=== PATIENT | male | born 1950 | race Caucasian/White ===

== ENCOUNTER 2016-11-06 19:02 | Inpatient (IN) | payer MEDICARE ==
[2016-11-06] MEDS ORDERED: ONDANSETRON HCL INJ/PF 4 MG/2 ML SDV ONE (19:06)
[2016-11-06] MEDS ORDERED: ONDANSETRON HCL INJ/PF 4 MG/2 ML SDV IV ONE (19:07)
[2016-11-06] MEDS ORDERED: NORMAL SALINE 1000 ML 1,000 ML IV ONE (19:33)
[2016-11-06] MEDS ORDERED: DIPHENHYDRAMINE HCL 50 MG/ML VIAL IV ONE (19:34)
--- NOTE | 2016-11-06 19:40 | ER Document Report ---
ED General - General Stated Complaint: POSSIBLE SYNCOPE/HEADACHE Notes: Patient is a 66-year-old male with past medical history of hypertension, hyperlipidemia, and a spinal fusion surgery performed one week ago who presents with acute onset of vertigo with an associated fall just prior to arrival. Patient states he was lying in bed when he developed acute onset of severe vertigo and feeling like he was falling towards his right. He got out of bed to try to walk to the door but actually fell onto the ground trying ambulate a short distance. Since that time he has had multiple episodes of vomiting and arrives very ill in appearance, diaphoretic and pale. Family denies any history of similar symptoms in the past. The patient denies any focal weakness , numbness, headache or altered mental status. Nothing improves or worsens his symptoms. He denies history of similar symptoms in the past. he has not contacted his PCP regarding today's symptoms. TRAVEL OUTSIDE OF THE [place] IN LAST 30 DAYS: No - Related Data Allergies/Adverse Reactions: levofloxacin [From Levaquin] Allergy (Verified 11/06/16 21:01) ibuprofen Adverse Reaction (Intermediate, Verified 11/06/16 21:01) meperidine HCl [From Demerol] Adverse Reaction (Intermediate, Verified 11/06/16 21:01) Hyperactivity Home Medications: Current Home Medications Carbidopa/Levodopa [Carbidopa-Levo ER 50-200 Tab] 200 mg PO TID 11/07/16 [ History] Diphenhydramine HCl 25 mg PO 11/07/16 [History] Fenofibrate Nanocrystallized [Fenofibrate] 145 mg PO DAILY 11/07/16 [History] Gluc 2Kcl/Chondr/Jass Hy/Hy AC [Glucosamine & Chondroitin Cap] 11/07/16 [ History] Past Medical History - General Information source: Patient, Relative - Social History Smoking Status: Never Smoker Frequency of alcohol use: None Drug Abuse: None Lives with: Spouse/Significant other Family History: Reviewed & Not Pertinent, Other - DVT - Past Medical History Cardiac Medical History: Reports: Hx Coronary Artery Disease, Hx Heart Attack, Hx Hypercholesterolemia, Hx Hypertension Pulmonary Medical History: Denies: Hx Asthma Neurological Medical History: Reports: 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. Denies: Hx Cerebrovascular Accident Renal/ Medical History: Reports: Hx Kidney Stones GI Medical History: Denies: Hx Hepatitis, Hx Hiatal Hernia, Hx Ulcer Infectious Medical History: Denies: Hx Hepatitis Past Surgical History: Reports: Hx Cardiac Catheterization, Hx Coronary Stent, Hx Orthopedic Surgery. Denies: Hx Open Heart Surgery, Hx Pacemaker - Immunizations Hx Diphtheria, Pertussis, Tetanus Vaccination: No Review of Systems - Review of Systems Notes: Constitutional: Negative for fever. HENT: Negative for sore throat. Eyes: Negative for visual changes. Cardiovascular: Negative for chest pain. Respiratory: Negative for shortness of breath. Gastrointestinal: Negative for abdominal pain, positive vomiting Genitourinary: Negative for dysuria. Musculoskeletal: Negative for back pain. Skin: Negative for rash. Neurological: Negative for headaches, weakness or numbness. Positive for vertigo and truncal ataxia 10 point ROS negative except as marked above and in HPI. Physical Exam - Vital signs Vitals: Temp Pulse Resp BP Pulse Ox 97.6 F 58 L 13 187/111 H 96 11/06/16 19:15 11/06/16 19:15 11/06/16 19:15 11/06/16 19:15 11/06/16 19:15 Interpretation: Hypertensive Notes: PHYSICAL EXAMINATION: GENERAL: Ill in appearance, pale, diaphoretic. HEAD: Atraumatic, normocephalic. EYES: Pupils equal round and reactive to light, extraocular movements intact, sclera anicteric, conjunctiva are normal. ENT: nares patent, oropharynx clear without exudates. Moderately dry mucous membranes. NECK: Normal range of motion, supple without lymphadenopathy LUNGS: Breath sounds clear to auscultation bilaterally and equal. No wheezes rales or rhonchi. HEART: Regular rate and rhythm without murmurs ABDOMEN: Soft, nontender, normoactive bowel sounds. No guarding, no rebound. No masses appreciated. EXTREMITIES: Normal range of motion, no pitting or edema. No cyanosis. NEUROLOGICAL: Face symmetric. Tongue protrudes midline. Extraocular motions intact. Pupils are 2 mm and equally reactive. Normal speech. 5 out of 5 strength in both the distal and proximal upper and lower extremities bilaterally. Sensation is grossly intact throughout. Finger to nose testing normal. Heel to mercedes normal. Patient continuously slumps towards the right while sitting in the bed. Attempts at ambulation demonstrate truncal ataxia point towards the right. Pronator drift normal. PSYCH: Normal mood, normal affect. SKIN: Pallor, no rashes or lesions noted. Course - Re-evaluation Re-evalutation: 11/06/16 19:35 Patient presents with acute onset vertigo, nausea and vomiting. Patient arrived diaphoretic, pale and ill in appearance. Vitals show bradycardia with associated hypertension. Patient initially actively vomiting but this did discontinue with administration of IV Zofran. Initial neurologic assessment shows normal cerebellar testing, normal extraocular motions, patient continues to fall toward the right with truncal ataxia concerning for possible cerebellar infarction. Alternative differential includes cardiac etiology although patient denies any chest pain, shortness of breath, and initial EKG is without evidence of ST elevations or depressions. Initial chest x-ray unremarkable without wide mediastinum, pneumothorax or infiltrate. Pulmonary embolus seems unlikely given the absence of dyspnea, shortness of breath, or suggestive clinical history. Less concerning pathologies considerations include acute disability neuritis although given patient's appearance and risk factors is to be a diagnosis of exclusion. Laboratories have been obtained. A stat head CT was obtained at time of patient's arrival which is negative for any evidence of subarachnoid hemorrhage or intraparenchymal bleed. Given that CT was obtained within 6 hours of symptom onset and patient does not have any significant headache, I do not believe a lumbar puncture to further exclude subarachnoid hemorrhage is indicated at this time. I do not suspect an acute meningitis or encephalitis based on clinical history and exam. Proceed with an MRI of the head, labs, fluid resuscitation and frequent reassessments. The patient is critically ill at this time. 11/06/16 22:15 I have been notified that patient cannot receive an MRI due to the recent nature of his spinal fusion. On reassessment, patient is much improved at this time, vitals mouth normal limits. He denies that he is point towards the right anymore. His repeat neurologic exam remains within normal limits. Will recheck a second troponin 3 hours from initial. Patient is overall much improved in appearance at this time color is now normal and is no longer vomiting. 11/07/16 01:22 Attempted to walk the patient and he continues to have severe truncal ataxia, pulling towards the right at the level of his torso. His neuro exam otherwise remains unremarkable. He continues to have vertigo. Second troponin remains negative. He continues to be without chest pain or shortness of breath. Primary concern at this point continues to be a cerebellar stroke given his truncal ataxia. He has been admitted to Dr. Martinez at this time. - Vital Signs Vital signs: Temp Pulse Resp BP Pulse Ox 97.6 F 68 20 133/83 H 93 11/06/16 19:15 11/07/16 00:11 11/07/16 01:31 11/07/16 01:31 11/07/16 01:31 - Laboratory Result Diagrams: 11/06/16 19:30 11/06/16 19:30 Laboratory results interpreted by me: 11/06/16 11/06/16 19:30 19:37 WBC 12.7 H RBC 3.98 L Hgb 12.9 L Plt Count 506 H Eosinophils % 6.9 H Absolute Eosinophils 0.9 H POC Glucose 111 H - Diagnostic Test Radiology reviewed: Image reviewed, Reports reviewed Radiology results interpreted by me: 11/06/16 19:39 CT head: No acute intracranial bleed - EKG Interpretation by Me Additional EKG results interpreted by me: 11/07/16 02:14 Sinus bradycardia. Rate 57. Incomplete right bundle. No ST elevations or depressions. QTC 421. Critical Care Note - Critical Care Note Total time excluding time spent on procedures (mins): 35 Comments: Critical care time spent obtaining history from patient or surrogate, discussions with consultants, development of treatment plan with patient or surrogate, evaluation of patient's response to treatment, examination of patient , ordering and performing treatments and interventions, ordering and review of laboratory studies, re-evaluation of patient's condition, ordering and review of radiographic studies and review of old charts Discharge - Discharge Clinical Impression: Truncal ataxia, Vertigo Nausea and vomiting Qualifiers: Vomiting type: unspecified Vomiting Intractability: non-intractable Qualified Code(s): R11.2 - Nausea with vomiting, unspecified Condition: Fair Disposition: ADMITTED INPATIENT Admitting Provider: Josi Martinez Unit Admitted: Telemetry
[2016-11-06 19:48] LABS: PROTHROMBIN TIME 12.4 SEC (11.4-15.4)
[2016-11-06 19:53] LABS: PARTIAL THROMBOPLASTIN TIME 32.5 SEC (23.5-35.8)
[2016-11-06 19:54] LABS: ABSOLUTE BASOPHILS # (AUTO) 0.1 10^3/uL (0.0-0.2); ABSOLUTE EOSINOPHILS # (AUTO) 0.9 10^3/uL (0.0-0.6); ABSOLUTE LYMPHOCYTES (AUTO) 2.7 10^3/uL (0.5-4.7); BASOPHILS % (AUTO) 1.1 % (0-2); EOSINOPHILS % (AUTO) 6.9 % (0-6); HEMATOCRIT 38.2 % (37.9-51.0); HEMOGLOBIN 12.9 g/dL (13.5-17.0); HGB HCT DIFFERENCE 0.5; LYMPHOCYTES % (AUTO) 21.1 % (13-45); MEAN CORPUSCULAR HEMOGLOBIN 32.3 pg (27.0-33.4); MEAN CORPUSCULAR HGB CONC 33.7 g/dL (32.0-36.0); MEAN CORPUSCULAR VOLUME 96 fl (80-97); MONOCYTES % (AUTO) 8.2 % (3-13); RED BLOOD COUNT 3.98 10^6/uL (4.35-5.55); RED CELL DISTRIBUTION WIDTH 13.1 % (11.5-14.0); SEGMENTED NEUTROPHILS % (AUTO) 62.7 % (42-78); WHITE BLOOD COUNT 12.7 10^3/uL (4.0-10.5)
[2016-11-06 20:06] LABS: ALANINE AMINOTRANSFERASE 22 U/L (21-72); ALBUMIN 4.1 g/dL (3.5-5.0); ALKALINE PHOSPHATASE 51 U/L (38-126); ANION GAP 13 (5-19); ASPARTATE AMINO TRANSFERASE 30 U/L (17-59); BILIRUBIN,TOTAL 0.6 mg/dL (0.2-1.3); BLOOD UREA NITROGEN 18 mg/dL (7-20); CALCIUM 9.8 mg/dL (8.4-10.2); CARBON DIOXIDE 26 mmol/L (22-30); CHLORIDE 104 mmol/L (98-107); CREATINE KINASE 143 U/L (55-170); CREATININE RESULT 0.92 mg/dL (0.52-1.25); GLUCOSE 109 mg/dL (75-110); POTASSIUM 4.7 mmol/L (3.6-5.0); SODIUM 142.7 mmol/L (137-145); TOTAL PROTEIN 7.1 g/dL (6.3-8.2)
[2016-11-06 20:19] LABS: TROPONIN I < 0.012 ng/mL
[2016-11-06 20:24] LABS: VENOUS BLOOD BASE EXCESS 2.7 mmol/L; VENOUS BLOOD HCO3 28.7 mmol/L (20-32); VENOUS BLOOD PCO2 48.8 mmHg (35-63); VENOUS BLOOD PH 7.39 (7.30-7.42)
[2016-11-06 21:41] LABS: APPEARANCE,URINE CLEAR; BILIRUBIN,URINE NEGATIVE (NEGATIVE); GLUCOSE, URINE NEGATIVE (NEGATIVE); KETONES,URINE NEGATIVE (NEGATIVE); LEUKOCYTE ESTERASE,URINE NEGATIVE (NEGATIVE); NITRITE,URINE NEGATIVE (NEGATIVE); PROTEIN,URINE NEGATIVE (NEGATIVE); URINE SPECIFIC GRAVITY 1.009; UROBILINOGEN,URINE NEGATIVE mg/dL (<2.0)
--- NOTE | 2016-11-06 23:03 | EKG REPORT ---
SEVERITY:- ABNORMAL ECG - SINUS RHYTHM INCOMPLETE RIGHT BUNDLE BRANCH BLOCK ANTERIOR INFARCT, AGE INDETERMINATE : Confirmed by: Caitlin Joaquin MD 06-Nov-2016 23:02:53
[2016-11-07 03:48] LABS: ADD ON TESTING BLD IN LAB ACKNOWLEDGE
[2016-11-07 04:07] LABS: MAGNESIUM 2.2 mg/dL (1.6-2.3)
[2016-11-07] MEDS ORDERED: ACETAMINOPHEN 325 MG TABLET PO PRN (06:02)
[2016-11-07 07:28] LABS: ABSOLUTE BASOPHILS # (AUTO) 0.1 10^3/uL (0.0-0.2); ABSOLUTE EOSINOPHILS # (AUTO) 0.5 10^3/uL (0.0-0.6); ABSOLUTE MONOCYTES (AUTO) 0.7 10^3/uL (0.1-1.4); ABSOLUTE NEUT (AUTO) 8.9 10^3/uL (1.7-8.2); BASOPHILS % (AUTO) 0.7 % (0-2); EOSINOPHILS % (AUTO) 4.4 % (0-6); HEMATOCRIT 38.8 % (37.9-51.0); HEMOGLOBIN 12.8 g/dL (13.5-17.0); HGB HCT DIFFERENCE -0.4; LYMPHOCYTES % (AUTO) 16.5 % (13-45); MEAN CORPUSCULAR HEMOGLOBIN 31.8 pg (27.0-33.4); MEAN CORPUSCULAR VOLUME 97 fl (80-97); MONOCYTES % (AUTO) 6.1 % (3-13); RED BLOOD COUNT 4.02 10^6/uL (4.35-5.55); RED CELL DISTRIBUTION WIDTH 13.1 % (11.5-14.0); SEGMENTED NEUTROPHILS % (AUTO) 72.3 % (42-78); WHITE BLOOD COUNT 12.3 10^3/uL (4.0-10.5)
[2016-11-07 07:46] LABS: CHOLESTEROL 186.53 mg/dL (0-200); Direct HDL 31 mg/dL (>40); TRIGLYCERIDES 146 mg/dL (<150)
[2016-11-07] MEDS: DEXTROSE 5%-NORMAL SALINE 1,000 ML IV PRN ×2 (07:48→22:00)
[2016-11-07] MEDS: ENOXAPARIN SODIUM INJ 40 MG/0.4 ML DISP.SYRIN SUBCUT SCH (07:49)
[2016-11-07 07:56] LABS: DIRECT LDL 129 mg/dL (<100)
--- NOTE | 2016-11-07 09:52 | PDOC H&P ---
History of Present Illness Admission Date/PCP: 11/07/16 01:33 [facility] Patient complains of: vertigo History of Present Illness: RUBINA RODAS III is a 66 year old male with underlying hyperlipidemia, possible congestive heart failure, myoclonic dystonia, known coronary artery disease, anxiety, and arthritis, who presents to the emergency room for evaluation of above complaint. Patient has been discussed with emergency room physician who evaluated the patient. . Patient states he went to bed early the evening of the because he simply felt "odd." No specific complaint other than that. He was awoken by the acute onset of severe vertigo and feeling like he was falling toward his right. Tried to get out of bed and walk to the door to go to the bathroom, and fell more than once, always falling toward his right. Patient states he felt like he had no strength on his right side, and that something was "pulling me to the right." Mild left temporal throbbing headache, which now has almost completely resolved. Multiple episodes of nausea and vomiting, which have resolved. Mild diplopia, which has resolved. However, no chest or abdominal pain, fever chills , diarrhea or dysuria. Was described as being quite ill in appearance upon arrival in the emergency room. Overall clinical appearance has improved. However, when patient was sat up on his bed in the emergency room, he continually fell toward the right. Similar occurrence when staff attempted to walk the patient. Described as "truncal ataxia" by the emergency room physician. Basic neurologic exam otherwise was unremarkable, including fingertip to nose and heel to mercedes. No motor deficit detected. Other than the diagnosis as noted above, basically no underlying neurologic disease, including prior seizure stroke TIA or mini stroke. He is status post lumbar fusion of L3-L5 approximate 1 week ago at [facility]. Has been home only approximately 2 days. Currently resting quietly, still not feeling quite back to his usual self. Laboratory results are listed in [facility] and are reviewed. X-ray summary results are listed below, with full report(s) reviewed. . EKG reviewed. No prior EKG available for comparison. Social history/personal habits: . Has children. Retired teacher. No tobacco use since the of this month; three-quarter pack of cigarettes a day prior to that. No alcohol or illicit drug use. Allergies/adverse reactions are listed in [facility] and are reviewed. Home medications are reviewed by bottle review and discussion with patient and have been reconciled by nursing staff in [facility]. Home medications initially autopopulated into [facility] may not accurately reflect patient's true medications, dosages, and/or frequencies. Compliant with medications. No recent medication changes. REVIEW OF SYSTEMS: Constitutional: No fever or chills. Eyes: Wears glasses. ENT: No swallowing problems or complaints. No hearing problems or complaints. Pulmonary: No current complaints. Cardiovascular: No current complaints, including chest pain. Gastrointestinal: See history and present illness. Skin: No current complaints, including rashes. Hematologic: No unusual easy bruising or bleeding. Neurologic: See history and present illness. Musculoskeletal: Joint pain from arthritis. Psychiatric: Anxiety Endocrine: No current complaints, including polyuria. Genitourinary: No current complaints, including dysuria. PHYSICAL EXAMINATION: 5 feet 10 inches tall. 88.3 kg. BMI 27.9 kg/m. Temperature 98.9. Pulse 68 and regular. Blood pressure 119/69. Respirations are 16 and unlabored. 96% saturation on room air. Slightly overweight otherwise well-nourished well-developed male appearing a bit younger than his stated age. Pleasant awake alert and cooperative. Slightly fatigued. Slightly anxious, but no anibal agitation. Appears to feel somewhat "under the weather," so to speak. is present at his side; patient approves. Skin is warm and dry. No grossly obvious evidence of rash in areas of skin examined. No subcutaneous nodules palpated. ENT: Hearing grossly normal to normal conversation. Tongue midline on protrusion pink and slightly moist. Eyes: No scleral icterus. Pupils equal and reactive to light at 4 mm. [place] conjunctivae. Neck is supple and nontender to gentle active range of motion and palpation. Midline trachea. No palpable thyroid nodule mass enlargement or tenderness. Lymphatic: No palpable cervical or clavicular nodes. Neck and lymphatic exams limited by patient body habitus. Psychiatric: Reasonable insight into acute and chronic medical issues. Oriented to time location and why here. Lungs: Auscultation reveals clear and equal breath sounds bilaterally. No use of accessory respiratory muscles. Cardiovascular: Heart regular rate and rhythm, without gallop murmur or rub. No carotid or abdominal aortic bruits. No ankle or pedal edema. Faintly palpable dorsalis pedis pulses. Abdomen: soft, slightly, distended nontender with positive bowel sounds. Unable to adequately evaluate abdomen for masses or organomegaly due to distention. Extremities: Feet are warm and dry. No calf tenderness to compression. No grossly obvious visual evidence of calf swelling. Gentle manipulation of lower extremities fails to reveal any obvious evidence of injury or instability to knees hips or ankles. Neurologic: Cranial Nerves II through XII are grossly intact. Light touch intact at face, upper and lower extremities. Motor function of major muscle groups upper and lower extremities 5 over 5 and symmetric. Patellar reflexes absent. Absent Babinski. No evidence of nystagmus. Fingertip to nose intact and symmetric bilaterally. Past Medical History Cardiac Medical History: Reports: Congestive Heart Failure - Possible, Coronary Artery Disease, Myocardial Infarction, Hyperlipidema, Hypertension Denies: DVT, Pulmonary Embolism Pulmonary Medical History: Denies: Asthma, Chronic Obstructive Pulmonary Disease (COPD) EENT Medical History: Reports: Eyes - Wears glasses Denies: Ears, Throat Neurological Medical History: Reports: Seizures - ONLY CHILD Denies: Hemorrhagic CVA, Ischemic CVA Endocrine Medical History: Denies: Diabetes Mellitus Type 1, Diabetes Mellitus Type 2, Hyperthyroidism, Hypothyroidism Renal/ Medical History: Reports: Other - Brief history of acute renal failure in 2016, felt secondary to Levaquin. Resolved. GI Medical History: Denies: Cirrhosis, Hepatitis, Hiatal Hernia, Peptic Ulcer Disease Musculoskeltal Medical History: Reports: Arthritis Skin Medical History: Reports: None Denies: Eczema, Psoriasis Psychiatric Medical History: Reports: General Anxiety Disorder Hematology: Denies: Anemia, Sickle Cell Disease Infectious Medical History: Denies: Hepatitis B, Hepatitis C Past Surgical History Past Surgical History: Reports: Cardiac Catheterization, Coronary Stent, Orthopedic Surgery Denies: Pacemaker Social History Information Source: Patient, Emergency Med Personnel, [facility] Records Lives with: Spouse/Significant other Smoking Status: Former Smoker Number of Years Smokin Last Time Smoked: 10/27/2016 Frequency of Alcohol Use: None Hx Recreational Drug Use: No Hx Prescription Drug Abuse: No - Advance Directive Resuscitation Status: Full Code Surrogate healthcare decision maker:: His Family History Family History: Reviewed & Not Pertinent, CAD, CVA, Other - DVT Parental Family History Reviewed: Yes Children Family History Reviewed: Yes Sibling(s) Family History Reviewed.: Yes Medication/Allergy Home Medications: Carvedilol [Coreg 25 mg Tablet] 1 tab PO BID 05/14/15 Multivitamin [Multivitamins] 1 each PO DAILY 05/14/15 Pravastatin Sodium [Pravachol] 10 mg PO DAILY 05/14/15 Pregabalin [Lyrica] 150 mg PO BID 05/14/15 RX: Diazepam 10 mg PO DAILY 05/14/15 RX: Duloxetine HCl 60 mg PO BID 05/14/15 Ubidecarenone [Coq-10] 400 mg PO DAILY 05/14/15 RX: Fludrocortisone Acetate 0.1 mg PO DAILY 07/20/15 Carbidopa/Levodopa [Carbidopa-Levo ER 50-200 Tab] 200 mg PO TID 11/07/16 Fenofibrate Nanocrystallized [Fenofibrate] 145 mg PO DAILY 11/07/16 Oxycodone HCl/Acetaminophen [Percocet 5-325 mg Tablet] 1 tab PO Q4HP PRN Clopidogrel Bisulfate [Plavix 75 mg Tablet] 75 mg PO DAILY #30 tablet 11/08/16 RX: Aspirin 81 mg PO DAILY #30 11/08/16 Allergies/Adverse Reactions: levofloxacin [From Levaquin] Allergy (Verified 11/06/16 21:01) ibuprofen Adverse Reaction (Intermediate, Verified 11/06/16 21:01) meperidine HCl [From Demerol] Adverse Reaction (Intermediate, Verified 11/06/16 21:01) Hyperactivity Physical Exam Vital Signs: Temp Pulse Resp BP Pulse Ox 98 F 70 16 122/59 L 99 11/07/16 03:24 11/07/16 03:26 11/07/16 03:26 11/07/16 03:26 11/07/16 03:26 Intake & Output 11/06/16 11/07/16 11/08/16 00:59 00:59 00:59 Weight 88.3 kg Results Impressions: Chest X-Ray 11/06/16 19:11 IMPRESSION: NO ACUTE RADIOGRAPHIC FINDING IN THE CHEST. Head CT 11/06/16 19:11 IMPRESSION: Limited negative study Assessment & Plan - Diagnosis (1) Acute focal neurological deficit Is this a current diagnosis for this admission?: YesPlan: Discussed by phone this morning at [address] Woodson, industrial gas production operator adult neurologist at [facility]. She stated the differential included benign paroxysmal positional vertigo along with cerebellar stroke. She Did not see the need to proceed with CT angiogram of the brain. Since patient not a candidate for MRI for several more weeks due to his recent lumbar fusion, she recommended repeat CT scan of the brain in 36-48 hours. Patient will be admitted under CVA/TIA protocol. Multiple imaging procedures, intracranial, vascular, and cardiac. lipid panel. Neurology consult with his outpatient neurologist, Dr. Sheth. Permissive hypertension. Patient is a full code. I have strongly urged patient not to get out of bed without calling nursing staff, to avoid a fall with injury. Knee high SCDs for DVT prophylaxis, along with subcutaneous Lovenox . Impression and plans were discussed with patient, and , both of whom concur. Time spent in evaluation and management of patient: 75 minutes (2) Truncal ataxia Is this a current diagnosis for this admission?: Yes (3) Vertigo Is this a current diagnosis for this admission?: Yes (4) Myoclonus dystonia Is this a current diagnosis for this admission?: Yes (5) Stented coronary artery Is this a current diagnosis for this admission?: YesPlan: Resume home medications as appropriate once these have been reviewed. - Inpatient Certification Based on my medical assessment, after consideration of the patient's comorbidities, presenting symptoms, or acuity I expect that the services needed warrant INPATIENT care.: Yes I certify that my determination is in accordance with my understanding of Medicare's requirements for reasonable and necessary INPATIENT services [42 CFR 412.3e].: Yes Medical Necessity: Need Close Monitoring Due to Risk of Patient Decompensation, Need For Continuous Telemetry Monitoring, Need for Neurological Checks, Risk of Diagnosis Which Will Require Inpatient Eval/Care/Monitoring Post Hospital Care: D/C or Transfer Summary
[2016-11-07] MEDS ORDERED: (PENDING PHARMACY ID) (Duloxetine Hcl [Duloxetine Hcl] 60 MG) PO SCH (10:00)
[2016-11-07] MEDS ORDERED: CARBIDOPA/LEVODOPA ER 50-200 MG TABLET.SA PO SCH (10:00)
[2016-11-07] MEDS: PREGABALIN 75 MG CAPSULE PO SCH ×2 (10:15→18:47)
[2016-11-07] MEDS: FENOFIBRATE NANOCRYSTALLIZED 145 MG TABLET PO SCH (10:15)
[2016-11-07] MEDS: MULTIVITAMIN TABLET PO SCH (10:15)
[2016-11-07] MEDS: ASPIRIN 81 MG TABLET, CHEWABLE PO SCH (10:16)
[2016-11-07] MEDS: CARBIDOPA/LEVODOPA ER 50-200 MG TABLET.SA PO SCH ×3 (10:17→19:01)
[2016-11-07] MEDS: DULOXETINE HCL 30 MG CAPSULE.DR PO SCH ×2 (10:19→18:48)
--- NOTE | 2016-11-07 12:04 | PDOC PROGRESS REPORT ---
Subjective Progress Note for:: 11/07/16 Subjective:: Patient states he is feeling a lot better Earlier last night patient was unable to ambulate falling onto his right side; and also had double vision The symptoms seem to have resolved She states his vision is clear He did ambulate with physical therapy with a walker and is back to his baseline CT of the head was essentially negative Spoke at length a with Dr. Sheth who feels that if all the symptoms have resolved Patient could be discharged home and followed up in the office A carotid ultrasound is still pending; echocardiogram was performed 2 weeks ago at her admissions representative's office will be obtained We will reevaluate patient's later this afternoon Physical Exam Vital Signs: Temp Pulse Resp BP Pulse Ox 98.1 F 65 18 141/76 H 96 11/07/16 11:10 11/07/16 11:10 11/07/16 11:10 11/07/16 11:10 11/07/16 11:10 General appearance: PRESENT: no acute distress, well-developed, well-nourished Head exam: PRESENT: atraumatic, normocephalic Eye exam: PRESENT: conjunctiva pink, EOMI, PERRLA. ABSENT: scleral icterus Ear exam: PRESENT: normal external ear exam Mouth exam: PRESENT: moist, tongue midline Neck exam: ABSENT: carotid bruit, JVD, lymphadenopathy, thyromegaly Respiratory exam: PRESENT: clear to auscultation donn. ABSENT: rales, rhonchi, wheezes Cardiovascular exam: PRESENT: RRR. ABSENT: diastolic murmur, rubs, systolic murmur Pulses: PRESENT: normal dorsalis pedis pul Vascular exam: PRESENT: normal capillary refill GI/Abdominal exam: PRESENT: normal bowel sounds, soft. ABSENT: distended, guarding, mass, organolmegaly, rebound, tenderness Rectal exam: PRESENT: deferred Extremities exam: PRESENT: full ROM. ABSENT: calf tenderness, clubbing, pedal edema Neurological exam: PRESENT: alert, awake, oriented to person, oriented to place , oriented to time, oriented to situation, CN II-XII grossly intact. ABSENT: motor sensory deficit Psychiatric exam: PRESENT: appropriate affect, normal mood. ABSENT: homicidal ideation, suicidal ideation Skin exam: PRESENT: dry, intact, warm. ABSENT: cyanosis, rash Results Laboratory Results: 11/07/16 07:09 11/07/16 11/07/16 07:09 07:09 WBC 12.3 H RBC 4.02 L Hgb 12.8 L Hct 38.8 MCV 97 MCH 31.8 MCHC 33.0 RDW 13.1 Plt Count 434 Seg Neutrophils % 72.3 Lymphocytes % 16.5 Monocytes % 6.1 Eosinophils % 4.4 Basophils % 0.7 Absolute Neutrophils 8.9 H Absolute Lymphocytes 2.0 Absolute Monocytes 0.7 Absolute Eosinophils 0.5 Absolute Basophils 0.1 Triglycerides 146 Cholesterol 186.53 LDL Cholesterol Direct 129 H VLDL Cholesterol 29.0 HDL Cholesterol 31 L Impressions: Chest X-Ray 11/06/16 19:11 IMPRESSION: NO ACUTE RADIOGRAPHIC FINDING IN THE CHEST. Head CT 11/06/16 19:11 IMPRESSION: Limited negative study Assessment & Plan - Diagnosis (1) TIA (transient ischemic attack) Is this a current diagnosis for this admission?: Yes (2) S/P lumbar fusion Is this a current diagnosis for this admission?: Yes (3) Vertigo Is this a current diagnosis for this admission?: Yes (4) Myoclonus dystonia Is this a current diagnosis for this admission?: Yes - Time Time Spent with patient: As above Continue to monitor the patient reevaluate later today Patient may be discharged if all tests are negative and if patient is able to ambulate Time Spent with patient: 35 or more minutes
[2016-11-07] MEDS ORDERED: DIPHENHYDRAMINE HCL 25 MG CAPSULE PO ONE (21:25)
[2016-11-07] MEDS ORDERED: ATORVASTATIN CALCIUM 20 MG TABLET PO SCH (22:00)
[2016-11-08] MEDS ORDERED: OXYCODONE HCL IR 5 MG TABLET PO PRN (00:32)
[2016-11-08] MEDS ORDERED: MORPHINE SULFATE 10 MG/ML INJ IV PRN (04:48)
[2016-11-08] MEDS ORDERED: MORPHINE SULFATE 10 MG/ML INJ ONE (04:54)
[2016-11-08 06:41] LABS: ABSOLUTE BASOPHILS # (AUTO) 0.1 10^3/uL (0.0-0.2); ABSOLUTE EOSINOPHILS # (AUTO) 0.7 10^3/uL (0.0-0.6); ABSOLUTE LYMPHOCYTES (AUTO) 2.4 10^3/uL (0.5-4.7); ABSOLUTE MONOCYTES (AUTO) 0.7 10^3/uL (0.1-1.4); ABSOLUTE NEUT (AUTO) 5.1 10^3/uL (1.7-8.2); BASOPHILS % (AUTO) 0.8 % (0-2); EOSINOPHILS % (AUTO) 7.6 % (0-6); HEMOGLOBIN 12.8 g/dL (13.5-17.0); HGB HCT DIFFERENCE 0.4; MEAN CORPUSCULAR HEMOGLOBIN 32.2 pg (27.0-33.4); MEAN CORPUSCULAR HGB CONC 33.7 g/dL (32.0-36.0); MEAN CORPUSCULAR VOLUME 96 fl (80-97); MONOCYTES % (AUTO) 7.6 % (3-13); RED BLOOD COUNT 3.97 10^6/uL (4.35-5.55); RED CELL DISTRIBUTION WIDTH 13.4 % (11.5-14.0)
[2016-11-08 07:25] LABS: ERYTHROCYTE SEDIMENTATION RATE 28 mm/hr (0-20)
[2016-11-08] MEDS ORDERED: ACETAMINOPHEN 325 MG TABLET PO PRN (07:42)
[2016-11-08] MEDS: ENOXAPARIN SODIUM INJ 40 MG/0.4 ML DISP.SYRIN SUBCUT SCH (08:13)
[2016-11-08] MEDS: CARBIDOPA/LEVODOPA ER 50-200 MG TABLET.SA PO SCH ×2 (09:36→14:58)
[2016-11-08] MEDS: ASPIRIN 81 MG TABLET, CHEWABLE PO SCH (09:36)
[2016-11-08] MEDS: DULOXETINE HCL 30 MG CAPSULE.DR PO SCH (09:37)
[2016-11-08] MEDS: PREGABALIN 75 MG CAPSULE PO SCH (09:37)
[2016-11-08] MEDS: MULTIVITAMIN TABLET PO SCH (09:38)
[2016-11-08] MEDS: FENOFIBRATE NANOCRYSTALLIZED 145 MG TABLET PO SCH (09:39)
--- NOTE | 2016-11-08 14:44 | PDOC DISCHARGE SUMMARY ---
General - Admit/Disc Date/PCP Admission Date/Primary Care Provider: 11/07/16 06:02 Discharge Date: 11/08/16 - Discharge Diagnosis (1) TIA (transient ischemic attack) Is this a current diagnosis for this admission?: Yes (2) S/P lumbar fusion Is this a current diagnosis for this admission?: Yes (3) Vertigo Is this a current diagnosis for this admission?: Yes (4) Myoclonus dystonia Is this a current diagnosis for this admission?: Yes - Additional Information Resuscitation Status: Full Code Discharge Diet: Cardiac Discharge Activity: Activity As Tolerated Home Medications: Carvedilol [Coreg 25 mg Tablet] 1 tab PO BID 05/14/15 Diazepam 10 mg PO DAILY 05/14/15 Duloxetine HCl 60 mg PO BID 05/14/15 Multivitamin [Multivitamins] 1 each PO DAILY 05/14/15 Pravastatin Sodium [Pravachol] 10 mg PO DAILY 05/14/15 Pregabalin [Lyrica] 150 mg PO BID 05/14/15 Ubidecarenone [Coq-10] 400 mg PO DAILY 05/14/15 Fludrocortisone Acetate 0.1 mg PO DAILY 07/20/15 Carbidopa/Levodopa [Carbidopa-Levo ER 50-200 Tab] 200 mg PO TID 11/07/16 Fenofibrate Nanocrystallized [Fenofibrate] 145 mg PO DAILY 11/07/16 Oxycodone HCl/Acetaminophen [Percocet 5-325 mg Tablet] 1 tab PO Q4HP PRN Aspirin 81 mg PO DAILY #30 11/08/16 Clopidogrel Bisulfate [Plavix 75 mg Tablet] 75 mg PO DAILY #30 tablet 11/08/16 History of Present Illness History of Present Illness: RUBINA RODAS III is a 66 year old male with underlying hyperlipidemia, possible congestive heart failure, myoclonic dystonia, known coronary artery disease, anxiety, arthritis, Status post lumbar fusion 2 weeks ago, presents to the ED with TIA-like symptoms On day of admission patient had vertigo double vision and could not ambulate He felt he was falling onto the right side "leaning onto the right" CT of the head performed in the ED was unremarkable He was subsequently admitted under hospitalist service for further evaluation and care Hospital Course Hospital Course: Patient's symptoms resolved during the first 12 hours of hospitalization Blurred vision resolved He was able to ambulate with a walker Workup showed [address] 24 hours apart normal carotid ultrasound ; labs were within normal range except for the LDL cholesterol of 129 Patient was monitored and did not have any cardiac arrhythmia Patient was continued on his prior medications IV fluids were prescribed as the blood pressure was noted to be low on admission at 100 -110 systolic Plavix 75 mg was added to ecotrin 81 mg daily ariana lumbosacral area were removed surgical wound healed and clean Physical Exam Vital Signs: Temp Pulse Resp BP Pulse Ox 98.7 F 65 18 151/81 H 98 11/08/16 11:25 11/08/16 11:25 11/08/16 11:25 11/08/16 11:25 11/08/16 11:25 Intake & Output 11/07/16 11/08/16 11/09/16 00:59 00:59 00:59 Intake Total 2475 1739 Output Total 750 Balance 1725 1739 General appearance: PRESENT: no acute distress, well-developed, well-nourished Head exam: PRESENT: atraumatic, normocephalic Eye exam: PRESENT: conjunctiva pink, EOMI, PERRLA. ABSENT: scleral icterus Ear exam: PRESENT: normal external ear exam Mouth exam: PRESENT: moist, tongue midline Neck exam: ABSENT: carotid bruit, JVD, lymphadenopathy, thyromegaly Respiratory exam: PRESENT: clear to auscultation donn. ABSENT: rales, rhonchi, wheezes Cardiovascular exam: PRESENT: RRR. ABSENT: diastolic murmur, rubs, systolic murmur Pulses: PRESENT: normal dorsalis pedis pul Vascular exam: PRESENT: normal capillary refill GI/Abdominal exam: PRESENT: normal bowel sounds, soft. ABSENT: distended, guarding, mass, organolmegaly, rebound, tenderness Rectal exam: PRESENT: deferred Extremities exam: PRESENT: full ROM. ABSENT: calf tenderness, clubbing, pedal edema Neurological exam: PRESENT: alert, awake, oriented to person, oriented to place , oriented to time, oriented to situation, CN II-XII grossly intact, other - Tremors upper extremities. ABSENT: motor sensory deficit Psychiatric exam: PRESENT: appropriate affect, normal mood. ABSENT: homicidal ideation, suicidal ideation Skin exam: PRESENT: dry, intact, warm. ABSENT: cyanosis, rash Results Laboratory Results: 11/08/16 05:28 11/08/16 11/08/16 05:28 05:28 WBC 9.0 RBC 3.97 L Hgb 12.8 L Hct 38.0 MCV 96 MCH 32.2 MCHC 33.7 RDW 13.4 Plt Count 443 Seg Neutrophils % 57.0 Lymphocytes % 27.0 Monocytes % 7.6 Eosinophils % 7.6 H Basophils % 0.8 Absolute Neutrophils 5.1 Absolute Lymphocytes 2.4 Absolute Monocytes 0.7 Absolute Eosinophils 0.7 H Absolute Basophils 0.1 C-Reactive Protein 7.1 11/06/16 11/06/16 11/07/16 19:30 23:09 07:09 Troponin I < 0.012 < 0.012 Triglycerides 146 Cholesterol 186.53 LDL Cholesterol Direct 129 H EKG Comments: Normal sinus rhythm right bundle branch block Echocardiogram performed in September 2016 Dr. Courtney Left ventricular ejection fraction was 40% Impressions: Chest X-Ray 11/06/16 19:11 IMPRESSION: NO ACUTE RADIOGRAPHIC FINDING IN THE CHEST. Carotid Doppler Study 11/07/16 06:10 IMPRESSION: NO HEMODYNAMICALLY SIGNIFICANT STENOSIS. Head CT 11/08/16 12:35 IMPRESSION: NORMAL BRAIN CT WITHOUT CONTRAST. Plan Discharge Plan: Patient was discharged home to follow up with Neurology and Cardiology Time Spent: Greater than 30 Minutes
[2016-11-08 15:15] VITALS: BP 131/85
== END 2016-11-08 15:44 | disposition home or self-care (01) | DRG 69 ==
LOC: ER 19:02 → UNDOADMIN 11-07 01:33 → EH 11-07 01:33 → 3W 11-07 03:10 → EH 11-07 06:02
PROVIDERS: ADMIT Family Medicine; ATTEND Family Medicine
DX: G45.9 Transient cerebral ischemic attack, unspecified (principal); G25.3 Myoclonus; E78.5 Hyperlipidemia, unspecified; I25.10 Atherosclerotic heart disease of native coronary artery without angina pectoris; M19.90 Unspecified osteoarthritis, unspecified site; I50.9 Heart failure, unspecified; I45.10 Unspecified right bundle-branch block; H53.2 Diplopia; I10 Essential (primary) hypertension; R27.0 Ataxia, unspecified; F41.1 Generalized anxiety disorder; W01.0XXA Fall on same level from slipping, tripping and stumbling without subsequent striking against object, initial encounter; R00.1 Bradycardia, unspecified; E78.00 Pure hypercholesterolemia, unspecified; I25.2 Old myocardial infarction; Z79.899 Other long term (current) drug therapy; Z95.5 Presence of coronary angioplasty implant and graft; Z87.891 Personal history of nicotine dependence; Z88.3 Allergy status to other anti-infective agents; Z88.8 Allergy status to other drugs, medicaments and biological substances; Z88.6 Allergy status to analgesic agent; Z82.3 Family history of stroke; Z82.49 Family history of ischemic heart disease and other diseases of the circulatory system
CPT/HCPCS: 36415; 70450; 71010; 80053; 80061; 81001; 82550; 82553; 82803; 82962; 83605; 83735; 84484; 85025; 85610; 85652; 85730; 86140; 93005; 93010; 93880; 96361; 96374; 96375; 99291; G8978-GP; G8979-GP; G8987-GO; G8988-GO; G8989-GO; G8996-GN; G8997-GN; G8998-GN; J1200; J1650; J2270; J2405; J3490; J7030

== ENCOUNTER → 2017-06-02 | Outpatient (CLI) | payer MEDICARE ==
[2017-06-02 09:53] LABS: ABSOLUTE BASOPHILS # (AUTO) 0.1 10^3/uL (0.0-0.2); ABSOLUTE EOSINOPHILS # (AUTO) 0.3 10^3/uL (0.0-0.6); ABSOLUTE LYMPHOCYTES (AUTO) 1.8 10^3/uL (0.5-4.7); ABSOLUTE MONOCYTES (AUTO) 0.7 10^3/uL (0.1-1.4); ABSOLUTE NEUT (AUTO) 5.7 10^3/uL (1.7-8.2); BASOPHILS % (AUTO) 0.9 % (0-2); EOSINOPHILS % (AUTO) 3.4 % (0-6); HEMATOCRIT 49.5 % (37.9-51.0); HEMOGLOBIN 17.1 g/dL (13.5-17.0); HGB HCT DIFFERENCE 1.8; LYMPHOCYTES % (AUTO) 20.9 % (13-45); MEAN CORPUSCULAR HEMOGLOBIN 33.7 pg (27.0-33.4); MEAN CORPUSCULAR HGB CONC 34.5 g/dL (32.0-36.0); MEAN CORPUSCULAR VOLUME 98 fl (80-97); MONOCYTES % (AUTO) 8.2 % (3-13); RED BLOOD COUNT 5.07 10^6/uL (4.35-5.55); RED CELL DISTRIBUTION WIDTH 13.3 % (11.5-14.0); SEGMENTED NEUTROPHILS % (AUTO) 66.6 % (42-78); WHITE BLOOD COUNT 8.6 10^3/uL (4.0-10.5)
[2017-06-02 10:27] LABS: ALANINE AMINOTRANSFERASE 20 U/L (21-72); ALBUMIN 4.4 g/dL (3.5-5.0); ALKALINE PHOSPHATASE 53 U/L (38-126); ANION GAP 10 (5-19); ASPARTATE AMINO TRANSFERASE 22 U/L (17-59); BILIRUBIN,DIRECT 0.4 mg/dL (0.0-0.4); BILIRUBIN,TOTAL 0.8 mg/dL (0.2-1.3); BLOOD UREA NITROGEN 20 mg/dL (7-20); CALCIUM 9.5 mg/dL (8.4-10.2); CARBON DIOXIDE 26 mmol/L (22-30); CHLORIDE 104 mmol/L (98-107); CHOLESTEROL 173.34 mg/dL (0-200); CREATININE RESULT 0.92 mg/dL (0.52-1.25); Direct HDL 40 mg/dL (>40); GLUCOSE 143 mg/dL (75-110); POTASSIUM 4.6 mmol/L (3.6-5.0); SODIUM 139.9 mmol/L (137-145); TOTAL PROTEIN 7.3 g/dL (6.3-8.2); TRIGLYCERIDES 174 mg/dL (<150)
[2017-06-02 10:38] LABS: DIRECT LDL 101 mg/dL (<100)
[2017-06-02 10:42] LABS: VLDL CHOLESTEROL 34.8 mg/dL (10-31)
== END ==
LOC: OD 09:24
PROVIDERS: ATTEND Internal Medicine
DX: I25.10 Atherosclerotic heart disease of native coronary artery without angina pectoris (principal); E78.2 Mixed hyperlipidemia; R73.9 Hyperglycemia, unspecified
CPT/HCPCS: 36415; 80053; 80061; 83036; 85025

== ENCOUNTER 2017-07-29 15:01 | Emergency (ER) | payer MEDICARE ==
--- NOTE | 2017-07-29 15:04 | ER Document Report ---
ED Respiratory Problem - General Chief Complaint: Shortness Of Breath Stated Complaint: SHORTNESS OF BREATH Time Seen by Provider: 07/29/17 15:01 Notes: The patient is a 67-year-old male, past medical history CAD, chronic bronchitis , CHF, current smoker, presents with 1 month of shortness of breath is worse when he takes deep breaths. He was treated with doxycycline for bronchitis about 2 weeks ago with mild relief of his symptoms. He had a follow-up appointment at the urgent care center and was sent to the ER due to worsening shortness of breath. He received a shot of 125 mg IM Solu-Medrol and a DuoNeb with some relief of his symptoms. He feels diffuse chest achiness, but denies fevers, leg swelling, nausea, vomiting, hemoptysis, rash TRAVEL OUTSIDE OF THE [place] IN LAST 30 DAYS: No - Related Data Allergies/Adverse Reactions: levofloxacin [From Levaquin] Allergy (Verified 11/06/16 21:01) ibuprofen Adverse Reaction (Intermediate, Verified 11/06/16 21:01) meperidine HCl [From Demerol] Adverse Reaction (Intermediate, Verified 11/06/16 21:01) Hyperactivity Past Medical History - General Information source: Patient - Social History Smoking Status: Current Every Day Smoker Family History: Reviewed & Not Pertinent, CAD, CVA, Other - DVT - Past Medical History Cardiac Medical History: Reports: Hx Congestive Heart Failure - Possible, Hx Coronary Artery Disease, Hx Heart Attack, Hx Hypercholesterolemia, Hx Hypertension Denies: Hx DVT, Hx Pulmonary Embolism Pulmonary Medical History: Denies: Hx Asthma, Hx COPD Neurological Medical History: Reports: 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. Denies: Hx Cerebrovascular Accident Endocrine Medical History: Denies: Hx Diabetes Mellitus Type 1, Hx Diabetes Mellitus Type 2, Hx Hyperthyroidism, Hx Hypothyroidism Renal/ Medical History: Reports: Hx Kidney Stones GI Medical History: Denies: Hx Cirrhosis, Hx Hepatitis, Hx Hiatal Hernia, Hx Ulcer Musculoskeltal Medical History: Reports Hx Arthritis Skin Medical History: Denies Hx Eczema, Denies Hx Psoriasis Infectious Medical History: Denies: Hx Hepatitis Past Surgical History: Reports: Hx Cardiac Catheterization, Hx Coronary Stent, Hx Orthopedic Surgery. Denies: Hx Open Heart Surgery, Hx Pacemaker - Immunizations Hx Diphtheria, Pertussis, Tetanus Vaccination: No Hx Pneumococcal Vaccination: 08/13/14 Review of Systems - Review of Systems Notes: REVIEW OF SYSTEMS: CONSTITUTIONAL: -fevers, -chills EENT: -eye pain, -difficulty swallowing, -nasal congestion CARDIOVASCULAR:-chest pain, -syncope. RESPIRATORY: -cough, +SOB GASTROINTESTINAL: -abdominal pain, -nausea, -vomiting, -diarrhea GENITOURINARY: -dysuria, -hematuria MUSCULOSKELETAL: -back pain, -neck pain SKIN: -rash or skin lesions. HEMATOLOGIC: -easy bruising or bleeding. LYMPHATIC: -swollen, enlarged glands. NEUROLOGICAL: -altered mental status or loss of consciousness, -headache, - neurologic symptoms PSYCHIATRIC: -anxiety, -depression. ALL OTHER SYSTEMS REVIEWED AND NEGATIVE. Physical Exam - Vital signs Vitals: Resp Pulse Ox 15 100 07/29/17 15:10 07/29/17 15:10 - Notes Notes: PHYSICAL EXAMINATION: GENERAL: Well-appearing, well-nourished and in no acute distress. HEAD: Atraumatic, normocephalic. EYES: Pupils equal round and reactive to light, extraocular movements intact, sclera anicteric, conjunctiva are normal. ENT: nares patent, oropharynx clear without exudates. Moist mucous membranes. NECK: Normal range of motion, supple without lymphadenopathy LUNGS: Breath sounds clear to auscultation bilaterally and equal. No wheezes, rales or rhonchi. Speaking in full sentences. HEART: Regular rate and rhythm without murmurs ABDOMEN: Soft, nontender, normoactive bowel sounds. No guarding, no rebound. No masses appreciated. EXTREMITIES: Normal range of motion, no pitting or edema. No cyanosis. NEUROLOGICAL: Cranial nerves grossly intact. Normal speech, normal gait. Normal sensory and motor exams. PSYCH: Normal mood, normal affect. SKIN: Warm, Dry, normal turgor, no rashes or lesions noted. Course - Re-evaluation Re-evalutation: Patient appears very well and he is in no respiratory distress. His oxygenation on room air is 97% and his wheezing resolved after duonebs and his steroids that he received from the urgent care center. Blood work and chest x- ray are all unremarkable. D-dimer sent due to the shortness of breath and chest pain, which is negative. PE and aortic dissection are unlikely at this time. Will send home patient with 4 more days of prednisone and instructions to use his albuterol inhaler as needed. Also counseled patient on smoking cessation and he will follow with his primary care physician this week. Given very strict return precautions and he understands. - Vital Signs Vital signs: Temp Pulse Resp BP Pulse Ox 15 130/88 H 99 07/29/17 17:11 07/29/17 16:01 07/29/17 17:11 - Laboratory Result Diagrams: 07/29/17 15:30 07/29/17 15:30 Laboratory results interpreted by me: 07/29/17 07/29/17 15:30 15:30 MCV 98 H MCH 33.9 H Seg Neutrophils % 79.4 H Lymphocytes % 12.6 L BUN 26 H Glucose 133 H Direct Bilirubin 0.5 H - EKG Interpretation by Me EKG shows normal: Sinus rhythm, [place], Intervals, QRS Complexes, ST-T Waves Rate: Normal [place]/QRS: LAHB/LAFB When compared to previous EKG there are: No significant change Discharge - Discharge Clinical Impression: Dyspnea Qualifiers: Dyspnea type: shortness of breath Qualified Code(s): R06.02 - Shortness of breath Condition: Stable Disposition: HOME, SELF-CARE Additional Instructions: SHORTNESS OF BREATH OR DYSPNEA: You were evaluated for shortness of breath, or dyspnea. Dyspnea has many causes, and some are more serious than others. Sometimes it's impossible to diagnose the cause of dyspnea with the tests that are available on an emergency basis. Based on our evaluation today, you do not need hospitalization now. We found no evidence of pneumonia, collapsed lung, blood clots in the lung, tumors , or heart failure. Causes of non-specific dyspnea can include asthma or bronchospasm, hyperventilation, emotional distress, heart disease, emphysema, fibrosis of the lung, and stiffness of the chest wall. In healthy individuals with a single episode, it's sometimes reasonable to do nothing but wait to see if the problem occurs again. Additional tests used to evaluate dyspnea can include cardiac stress testing, echocardiography, pulmonary function testing, CAT scan of the chest, bronchoscopy or pulmonary biopsy. Return if shortness of breath persists or worsens, or if you develop chest pain, fever, cough, confusion, or fainting. NORMAL EXAM AND WORKUP: At this time, your examination and workup show no significant abnormality. No significant abnormal physical findings were noted. All laboratory, EKG, and imaging (x-ray, CT scans, ultrasound) studies that were ordered show no significant abnormality. Although your examination and all studies that were ordered showed no significant abnormal finding, there are no examinations and no studies that are 100% accurate. There is always the possibility that some abnormality could exist and not be detected with physical examination or within the limits and capabilities of laboratory and other studies. You should return or follow up as you were instructed on your visit today for further evaluation if your symptoms do not resolve. FOLLOW-UP CARE: If you have been referred to a physician for follow-up care, call the physician s office for an appointment as you were instructed or within the next two days. If you experience worsening or a significant change in your symptoms, notify the physician immediately or return to the Emergency Department at any time for re-evaluation. BRONCHITIS WITH BRONCHOSPASM (WHEEZING): You have bronchitis with bronchospasm (wheezing). Sometimes people develop wheezing with a chest cold. This occurs either because of an underlying tendency toward asthma or because the virus itself irritates the bronchial tubes. This irritation causes cough, shortness of breath, and wheezing. Emergency treatment of bronchospasm may include adrenaline shots or bronchodilator aerosol. You may feel lightheaded and have a rapid pulse for an hour or two. Rest and get plenty of fluids. At home, we'll treat you with a bronchodilator inhaler. Corticosteroids may be required for some patients. Until you recover, avoid chemical fumes, dusts, pollens, and exercising in very cold or dry air. If you smoke, stop now! Most cases of bronchitis get better without antibiotics. We prescribe antibiotics when we believe bacteria are damaging your airways, or if there's high risk the bronchitis will worsen into pneumonia. Increase your fluid intake. A cool mist humidifier may make your lungs more comfortable. An expectorant (cough medicine that loosens phlegm) can help. Repeated episodes of bronchitis and bronchospasm may result in lung damage -- for example, chronic bronchitis, recurrent pneumonias, or emphysema. If you develop a fever, increased wheezing, chest pain, or severe shortness of breath, you should contact the doctor immediately. INHALED BRONCHODILATORS: You have received a treatment of and/or prescription for an inhaled bronchodilator -- a medication which stimulates the airways in the lung to dilate. This improves the flow of air in asthma, bronchitis, and emphysema. These medicines have some similarity to adrenaline, and can cause similar side effects: shakiness, racing heart, and a sense of nervousness. These side effects decrease with time. Contact your doctor if these side effects are severe. Do not over-use the medicine. Too-frequent use of the inhaler may make it ineffective. Call your doctor if the inhaler is not controlling your symptoms at the prescribed doses. STEROID MEDICATION: You have been given an injection of or oral medicine of the cortisone/ steroid class. This medication is used to control inflammation or allergy. Jose Roberto t is usually only given for a short period of time, until the acute process subsides. There are usually no side effects from short-term use of cortisone-like medications. Some persons feel an increased sense of well-being and are not sleepy at bedtime. Long-term use of cortisone medications is best avoided, unless required for a severe condition. If your condition does not remit, or relapses after the course of corticosteroid medication, you should consult your physician. SMOKING: If you smoke, you should stop smoking. The tar and chemicals in cigarette smoke are harmful. Smoking has been shown to cause: emphysema chronic bronchitis lung cancer mouth and throat cancer stomach and pancreas cancer premature aging defects In addition, smoking increases ear and lung infections in children of smokers. FOLLOW-UP CARE: If you have been referred to a physician for follow-up care, call the physician s office for an appointment as you were instructed or within the next two days. If you experience worsening or a significant change in your symptoms, notify the physician immediately or return to the Emergency Department at any time for re-evaluation. Prescriptions: Albuterol Sulfate [Proair HFA Inhalation Aerosol 8.5 gm MDI] 2 puff IH Q4H PRN # 1 mdi PRN Reason: Prednisone [Deltasone 20 mg Tablet] 3 tab PO DAILY 4 Days tablet Forms: Smoking Cessation Education
[2017-07-29] MEDS ORDERED: IPRATROPIUM/ALBUTEROL 0.5-2.5 MG/3 ML AMPUL NEB ONE (15:11)
[2017-07-29 16:04] LABS: ABSOLUTE BASOPHILS # (AUTO) 0.1 10^3/uL (0.0-0.2); ABSOLUTE EOSINOPHILS # (AUTO) 0.1 10^3/uL (0.0-0.6); ABSOLUTE LYMPHOCYTES (AUTO) 1.1 10^3/uL (0.5-4.7); ABSOLUTE MONOCYTES (AUTO) 0.5 10^3/uL (0.1-1.4); ABSOLUTE NEUT (AUTO) 6.9 10^3/uL (1.7-8.2); BASOPHILS % (AUTO) 0.6 % (0-2); EOSINOPHILS % (AUTO) 1.7 % (0-6); HEMATOCRIT 46.7 % (37.9-51.0); HEMOGLOBIN 16.2 g/dL (13.5-17.0); HGB HCT DIFFERENCE 1.9; LYMPHOCYTES % (AUTO) 12.6 % (13-45); MEAN CORPUSCULAR HEMOGLOBIN 33.9 pg (27.0-33.4); MEAN CORPUSCULAR HGB CONC 34.6 g/dL (32.0-36.0); MEAN CORPUSCULAR VOLUME 98 fl (80-97); MONOCYTES % (AUTO) 5.7 % (3-13); RED BLOOD COUNT 4.77 10^6/uL (4.35-5.55); RED CELL DISTRIBUTION WIDTH 13.2 % (11.5-14.0); SEGMENTED NEUTROPHILS % (AUTO) 79.4 % (42-78); WHITE BLOOD COUNT 8.6 10^3/uL (4.0-10.5)
[2017-07-29 16:08] LABS: ALANINE AMINOTRANSFERASE 26 U/L (21-72); ALBUMIN 4.4 g/dL (3.5-5.0); ALKALINE PHOSPHATASE 50 U/L (38-126); ANION GAP 11 (5-19); ASPARTATE AMINO TRANSFERASE 24 U/L (17-59); BILIRUBIN,DIRECT 0.5 mg/dL (0.0-0.4); BILIRUBIN,TOTAL 1.2 mg/dL (0.2-1.3); BLOOD UREA NITROGEN 26 mg/dL (7-20); CALCIUM 10.2 mg/dL (8.4-10.2); CARBON DIOXIDE 27 mmol/L (22-30); CHLORIDE 103 mmol/L (98-107); CREATINE KINASE 68 U/L (55-170); CREATININE RESULT 1.07 mg/dL (0.52-1.25); GLUCOSE 133 mg/dL (75-110); POTASSIUM 4.8 mmol/L (3.6-5.0); SODIUM 141.3 mmol/L (137-145); TOTAL PROTEIN 7.1 g/dL (6.3-8.2)
[2017-07-29 16:25] LABS: TROPONIN I < 0.012 ng/mL
[2017-07-29 16:27] LABS: VENOUS BLOOD BASE EXCESS 3.4 mmol/L; VENOUS BLOOD HCO3 29.2 mmol/L (20-32); VENOUS BLOOD PH 7.4 (7.30-7.42)
--- NOTE | 2017-07-29 17:01 | RADIOLOGY REPORT (SQ) ---
EXAM DESCRIPTION: CHEST PA/LAT COMPLETED DATE/TIME: 07/29/2017 4:38 pm REASON FOR STUDY: SOB COMPARISON: 11/06/2016 EXAM PARAMETERS: NUMBER OF VIEWS: two views TECHNIQUE: Digital Frontal and Lateral radiographic views of the chest acquired. RADIATION DOSE: NA LIMITATIONS: none FINDINGS: LUNGS AND PLEURA: No opacities, masses or pneumothorax. No pleural effusion. MEDIASTINUM AND HILAR STRUCTURES: No masses or contour abnormalities. HEART AND VASCULAR STRUCTURES: Heart normal size. No evidence for failure. BONES: No acute findings. HARDWARE: None in the chest. OTHER: No other significant finding. IMPRESSION: NO SIGNIFICANT RADIOGRAPHIC FINDING IN THE CHEST. TECHNICAL DOCUMENTATION: JOB ID: [id number] [employer]- All Rights Reserved
[2017-07-29 17:22] VITALS: BP 130/88
--- NOTE | 2017-07-30 09:21 | EKG REPORT ---
SEVERITY:- ABNORMAL ECG - SINUS RHYTHM LEFT ANTERIOR FASCICULAR BLOCK ANTERIOR INFARCT, AGE INDETERMINATE : Confirmed by: Caitlin Joaquin MD 30-Jul-2017 09:20:22
== END 2017-07-29 17:11 | disposition home or self-care (01) ==
LOC: ER 15:01
DX: R06.02 Shortness of breath (principal); I25.10 Atherosclerotic heart disease of native coronary artery without angina pectoris; J40 Bronchitis, not specified as acute or chronic; I50.9 Heart failure, unspecified; F17.210 Nicotine dependence, cigarettes, uncomplicated
CPT/HCPCS: 93005; 94640; 99285; 36415; 82550; 85025; 80053; 84484; 85379; 82803; 83880; 71020; 93010; A9270; J7620

== ENCOUNTER → 2018-10-29 | Outpatient (CLI) | payer MEDICARE | LOC: OD 09:38 | PROVIDERS: ATTEND Otolaryngology | DX: J30.9 Allergic rhinitis, unspecified (principal) | CPT/HCPCS: 36415; 82785; 86003 ==

== ENCOUNTER 2019-06-26 13:45 | Emergency (ER) | payer MEDICARE ==
--- NOTE | 2019-06-26 14:31 | ER Document Report ---
ED Medical Screen (RME) - General Chief Complaint: Abdominal Pain Stated Complaint: ABDOMINAL PAIN Time Seen by Provider: 06/26/19 14:22 Primary Care Provider: ELMER AMBRIZ MD [Primary Care Provider] - Follow up as needed TRAVEL OUTSIDE OF THE [place] IN LAST 30 DAYS: No - HPI Notes: 06/26/19 14:33 68-year-old male to the emergency department with complaints of left lower abdo maurice pain that has been getting worse for the past month. States that he seen his GI specialist and he is scheduled for a colonoscopy at the beginning of July but he is concerned because the pain is been progressively getting worse. Admits to mainly constipation. He states in the past year he is noticed that he no longer has a daily bowel movement but has a bowel movement every 3 to 4 days. He had his last colonoscopy 5 years ago and had a polyp but pop is never been cancerous. His he does have a brother who has colon cancer. Denies any fevers, chills, blood in his stool. Performed a brief medical screening exam on the patient and have ordered labs and a CT scan We will have main side provider further evaluate and treat patient. - Related Data Allergies/Adverse Reactions: levofloxacin [From Levaquin] Allergy (Verified 11/06/16 21:01) ibuprofen Adverse Reaction (Intermediate, Verified 11/06/16 21:01) meperidine HCl [From Demerol] Adverse Reaction (Intermediate, Verified 11/06/16 21:01) Hyperactivity Past Medical History - Past Medical History Cardiac Medical History: Reports: Hx Congestive Heart Failure - Possible, Hx Coronary Artery Disease, Hx Heart Attack, Hx Hypercholesterolemia, Hx Hypertension Denies: Hx DVT, Hx Pulmonary Embolism Pulmonary Medical History: Denies: Hx Asthma, Hx COPD Neurological Medical History: Reports: 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. Denies: Hx Cerebrovascular Accident Endocrine Medical History: Denies: Hx Diabetes Mellitus Type 1, Hx Diabetes Mellitus Type 2, Hx Hyperthyroidism, Hx Hypothyroidism Renal/ Medical History: Reports: Hx Kidney Stones GI Medical History: Denies: Hx Cirrhosis, Hx Hepatitis, Hx Hiatal Hernia, Hx Ulcer Musculoskeltal Medical History: Reports Hx Arthritis Skin Medical History: Denies Hx Eczema, Denies Hx Psoriasis Infectious Medical History: Denies: Hx Hepatitis Past Surgical History: Reports: Hx Cardiac Catheterization, Hx Coronary Stent, Hx Orthopedic Surgery. Denies: Hx Open Heart Surgery, Hx Pacemaker - Immunizations Hx Diphtheria, Pertussis, Tetanus Vaccination: No Physical Exam - Vital signs Vitals: Temp Pulse Resp BP Pulse Ox 98.7 F 85 20 110/82 96 06/26/19 13:51 06/26/19 13:51 06/26/19 13:51 06/26/19 13:51 06/26/19 13:51 Course - Vital Signs Vital signs: Temp Pulse Resp BP Pulse Ox 98.7 F 85 20 110/82 96 06/26/19 13:51 06/26/19 13:51 06/26/19 13:51 06/26/19 13:51 06/26/19 13:51 Doctor's Discharge - Discharge Referrals: ELMER AMBRIZ MD [Primary Care Provider] - Follow up as needed
[2019-06-26 16:12] LABS: ABSOLUTE BASOPHILS # (AUTO) 0.1 10^3/uL (0.0-0.2); ABSOLUTE EOSINOPHILS # (AUTO) 0.1 10^3/uL (0.0-0.6); ABSOLUTE LYMPHOCYTES (AUTO) 1.8 10^3/uL (0.5-4.7); ABSOLUTE MONOCYTES (AUTO) 0.7 10^3/uL (0.1-1.4); ABSOLUTE NEUT (AUTO) 10.1 10^3/uL (1.7-8.2); BASOPHILS % (AUTO) 0.6 % (0-2); EOSINOPHILS % (AUTO) 0.9 % (0-6); HEMATOCRIT 51.3 % (37.9-51.0); HEMOGLOBIN 17.2 g/dL (13.5-17.0); LYMPHOCYTES % (AUTO) 14.3 % (13-45); MEAN CORPUSCULAR HEMOGLOBIN 31.2 pg (27.0-33.4); MEAN CORPUSCULAR HGB CONC 33.4 g/dL (32.0-36.0); MEAN CORPUSCULAR VOLUME 93 fl (80-97); MONOCYTES % (AUTO) 5.6 % (3-13); PLATELET COUNT 384 10^3/uL (150-450); RED BLOOD COUNT 5.49 10^6/uL (4.35-5.55); RED CELL DISTRIBUTION WIDTH 13.9 % (11.5-14.0); SEGMENTED NEUTROPHILS % (AUTO) 78.6 % (42-78); TOTAL CELLS COUNTED % (AUTO) 100 %; WHITE BLOOD COUNT 12.9 10^3/uL (4.0-10.5)
--- NOTE | 2019-06-26 16:31 | ER Document Report ---
ED GI/ - General Chief Complaint: Abdominal Pain Stated Complaint: ABDOMINAL PAIN Time Seen by Provider: 06/26/19 14:22 Mode of Arrival: Ambulatory Information source: Patient Notes: 68-year-old male presents to ED for left lower abdominal pain that is been getting worse over the last month. He states he is scheduled for colonoscopy in the beginning of July. He states his brother is in surgery today for colon cancer and he is concerned about this progressively increasing pain in his colon. It is on the left lower quadrant. He denies any fevers nausea or vomiting. He states he has been constipated in the past but he has not had any hard stools at this time. He states he has bowel movements every 3 or 4 days he had a small one today but not a large one. He states he has had one polyp in the past but it was not cancerous. Patient is alert oriented respirations regular nonlabored speaking in full sentences. TRAVEL OUTSIDE OF THE [place] IN LAST 30 DAYS: No - HPI Patient complains to provider of: Abdominal pain Onset: Other - Month to month and a half Timing/Duration: Gradual, Intermittent Quality of pain: Sharp Severity at maximum: Moderate Severity in ED: Mild Pain Level: 2 Location: LLQ Associated symptoms: denies: Chills, Diarrhea, Fever, Nausea, Urinary hesitancy, Urinary frequency, Urinary retention, Urinary urgency Exacerbated by: Movement Relieved by: Denies Similar symptoms previously: Yes Recently seen / treated by doctor: Yes - Related Data Allergies/Adverse Reactions: fentanyl Allergy (Verified 06/26/19 16:41) levofloxacin [From Levaquin] Allergy (Verified 11/06/16 21:01) ibuprofen Adverse Reaction (Intermediate, Verified 11/06/16 21:01) meperidine HCl [From Demerol] Adverse Reaction (Intermediate, Verified 11/06/16 21:01) Hyperactivity Past Medical History - General Information source: Patient - Social History Smoking Status: Former Smoker Frequency of alcohol use: None Drug Abuse: None Occupation: Retired Lives with: Family Family History: Reviewed & Not Pertinent, CAD, CVA, Other - DVT Patient has suicidal ideation: No Patient has homicidal ideation: No - Past Medical History Cardiac Medical History: Reports: Hx Coronary Artery Disease, Hx Heart Attack, Hx Hypercholesterolemia Pulmonary Medical History: Reports: None EENT Medical History: Reports: None Neurological Medical History: Reports: 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 Endocrine Medical History: Reports: Hx Diabetes Mellitus Type 2 Renal/ Medical History: Reports: Hx Kidney Stones Malignancy Medical History: Reports None GI Medical History: Reports: Hx Colonoscopy, Hx Endoscopy Musculoskeletal Medical History: Reports Hx Arthritis, Reports Other Skin Medical History: Reports None Psychiatric Medical History: Reports: None Traumatic Medical History: Reports: Hx Fractures - 5th finger accidental amputation Infectious Medical History: Reports: None Past Surgical History: Reports: Hx Adenoidectomy, Hx Cardiac Catheterization, Hx Coronary Stent, Hx Orthopedic Surgery - 4 back surgeries, repair of traumatic amputation left fifth finger, Hx Tonsillectomy - Immunizations Hx Diphtheria, Pertussis, Tetanus Vaccination: Yes - 2014 Hx Pneumococcal Vaccination: 08/13/14 Review of Systems - Review of Systems Constitutional: No symptoms reported EENT: No symptoms reported Cardiovascular: No symptoms reported Respiratory: No symptoms reported Gastrointestinal: Abdominal pain - llq Genitourinary: No symptoms reported Male Genitourinary: No symptoms reported Musculoskeletal: No symptoms reported Skin: No symptoms reported Hematologic/Lymphatic: No symptoms reported Neurological/Psychological: No symptoms reported Physical Exam - Vital signs Vitals: Temp Pulse Resp BP Pulse Ox 98.7 F 85 20 110/82 96 06/26/19 13:51 06/26/19 13:51 06/26/19 13:51 06/26/19 13:51 06/26/19 13:51 Interpretation: Normal - General General appearance: Appears well, Alert - HEENT Head: Normocephalic, Atraumatic Eyes: Normal Pupils: PERRL - Respiratory Respiratory status: No respiratory distress Chest status: Nontender Breath sounds: Normal Chest palpation: Normal - Cardiovascular Rhythm: Regular Heart sounds: Normal auscultation Murmur: No - Abdominal Inspection: Normal Distension: No distension Bowel sounds: Hyperactive Tenderness: Tender Organomegaly: No organomegaly - Back Back: Normal, Nontender - Extremities General upper extremity: Normal inspection, Nontender, Normal color, Normal ROM, Normal temperature General lower extremity: Normal inspection, Nontender, Normal color, Normal ROM, Normal temperature, Normal weight bearing. No: Katie's sign - Neurological Neuro grossly intact: Yes Cognition: Normal Orientation: AAOx4 [place] Coma Scale Eye Opening: Spontaneous [place] Coma Scale Verbal: Oriented [place] Coma Scale Motor: Obeys Commands [place] Coma Scale Total: 15 Speech: Normal Motor strength normal: LUE, RUE, LLE, RLE Sensory: Normal - Psychological Associated symptoms: Normal affect, Normal mood - Skin Skin Temperature: Warm Skin Moisture: Dry Skin Color: Normal Course - Re-evaluation Re-evalutation: 06/26/19 19:23 Spoke with the on-call urology in [facility]. They recommended that first that the patient be transferred to the nearest hospital. The urology rupesh dominique was a PA family development extension specialist she called her primary doctor and then called back and stated that the patient could go home tonight and come to their office tomorrow and discussed with the patient precautions for surgery and when to return to the ED if he had any complications. She also explained to me that if he had any nausea or vomiting or fever he was to come directly to the emergency room and carry. He does have a 9.7 mm stone in the right ureter and a 1 cm stone in the left ureter with hydronephrosis mild to moderate on both sides. Patient verbalized he did want to go home and go to the [facility] tomorrow. He will be discharged home with all labs and CD of the CAT scan. Patient and agreed to this plan and he will be discharged. - Vital Signs Vital signs: Temp Pulse Resp BP Pulse Ox 97.6 F 77 20 136/87 H 98 06/26/19 18:45 06/26/19 18:45 06/26/19 18:45 06/26/19 18:45 06/26/19 18:45 - Laboratory Result Diagrams: 06/26/19 15:53 06/26/19 15:53 Laboratory results interpreted by me: 06/26/19 06/26/19 06/26/19 15:53 15:53 15:53 WBC 12.9 H Hgb 17.2 H Hct 51.3 H Absolute Neuts (auto) 10.1 H Seg Neutrophils % 78.6 H Potassium 5.2 H Chloride 96 L Carbon Dioxide 32 H Glucose 235 H Calcium 10.3 H Creatine Kinase 54 L Urine Protein Urine Glucose (UA) Urine Ketones Urine Blood 06/26/19 16:34 WBC Hgb Hct Absolute Neuts (auto) Seg Neutrophils % Potassium Chloride Carbon Dioxide Glucose Calcium Creatine Kinase Urine Protein 30 H Urine Glucose (UA) >=500 H Urine Ketones TRACE H Urine Blood LARGE H - Diagnostic Test Radiology reviewed: Image reviewed, Reports reviewed Discharge - Discharge Clinical Impression: bilateral obstructive ureteral stones Disposition: HOME, SELF-CARE Instructions: Family Physicians / Practices Additional Instructions: KIDNEY STONE: You are passing or have passed a kidney stone. These stones are usually due to increased calcium or uric acid concentrations in your urine. Stones wit hin the kidney itself are not painful. The pain occurs as the stone leaves the kidney to pass down the long tube, called the ureter, leading to the bladder. If the stone is small, it will usually pass by itself. Most patients can pass the stone at home. You will usually receive medications for pain, nausea or vomiting, and sometimes a medication to assist in passing the kidney stone. However, if the pain is very severe or if vomiting prevents you from taking oral pain medications, you may need to return for further treatment. Drink three or four quarts of fluids per day. You will be given pain medication (if needed) and urine strainers. Strain all your urine to see if the stone passes. If your doctor has asked you to bring the stone in for analysis, return with the stone once it has passed. Return if pain or vomiting become severe, if you develop a high fever, if you are unable to pass your urine, or if other unusual symptoms occur. You will be discharged home tonight. If you have any nausea vomiting or fever at all he will go straight to the hospital and carries emergency room. You are to go to the hospital to carry as you were instructed by the urology PA for treatment for your bilateral obstructive kidney stones. I have sent you with a written report of your labs and a CD of your CAT scan. ANTINAUSEA MEDICATION: You have been given a medication to suppress nausea and vomiting. This type of medication can be given as a shot, pill, or suppository. It will usually last for many hours. Pills and shots usually last six to eight hours, suppositories last about 12 hours. For the typical illness, only one or two doses of the medication may be necessary. Mild lightheadedness may occur. This type of medicine can cause drowsiness. Do not drive or operate dangerous machinery while under its influence. Do not mix with alcohol. See your doctor at once if you have muscle spasms or tightness, or uncontrollable motions (particularly of the neck, mouth, or jaw). Persistent vomiting or severe lightheadedness should also be evaluated by the physician. ORAL NARCOTIC MEDICATION: You have been given a prescription for pain control. This medication is a narcotic. It's best taken with food, as nausea can result if taken on an empty stomach. Don't operate machinery or drive within six hours of taking this medication. Do not combine this medicine with alcohol, or with any medication which can cause sedation (such as cold tablets or sleeping pills) unless you get permission from the physician. Narcotics tend to cause constipation. If possible, drink plenty of fluids and eat a diet high in fiber and fruits. Please be aware that prescription narcotics also have the potential for abuse. People become addicted to these medications because of the general sense of wellbeing that they induce. This feeling along with a significant reduction in tension, anxiety, and aggression provides a stimulating seductive quality to these drugs. Once your pain is under control, we encourage you to discard your unused narcotics. FOLLOW-UP CARE: If you have been referred to a physician for follow-up care, call the physicians office for an appointment as you were instructed or within the next two days. If you experience worsening or a significant change in your symptoms, notify the physician immediately or return to the Emergency Department at any time for re-evaluation. Prescriptions: Hydrocodone/Acetaminophen [[place] 5-325 mg Tablet] 1 tab PO Q6HP PRN #14 tablet PRN Reason: Ondansetron [Zofran Odt 4 mg Tablet] 1 tab PO Q6H #15 tab.rapdis
[2019-06-26 16:34] LABS: ALBUMIN 4.7 g/dL (3.5-5.0); ALKALINE PHOSPHATASE 67 U/L (38-126); ANION GAP 10 (5-19); ASPARTATE AMINO TRANSFERASE 31 U/L (17-59); BILIRUBIN,DIRECT 0.2 mg/dL (0.0-0.4); BILIRUBIN,TOTAL 1.1 mg/dL (0.2-1.3); BLOOD UREA NITROGEN 19 mg/dL (7-20); CALCIUM 10.3 mg/dL (8.4-10.2); CARBON DIOXIDE 32 mmol/L (22-30); CHLORIDE 96 mmol/L (98-107); GLUCOSE 235 mg/dL (75-110); POTASSIUM 5.2 mmol/L (3.6-5.0)
[2019-06-26 16:55] LABS: APPEARANCE,URINE CLOUDY; BILIRUBIN,URINE NEGATIVE (NEGATIVE); CALCIUM OXALATE CRYSTALS,URINE RARE /HPF; GLUCOSE, URINE >=500 mg/dL (NEGATIVE); KETONES,URINE TRACE mg/dL (NEGATIVE); LEUKOCYTE ESTERASE,URINE NEGATIVE (NEGATIVE); NITRITE,URINE NEGATIVE (NEGATIVE); PROTEIN,URINE 30 mg/dL (NEGATIVE); URINE SPECIFIC GRAVITY 1.018; UROBILINOGEN,URINE NEGATIVE mg/dL (<2.0)
[2019-06-26 16:56] LABS: COLOR,URINE DARK YELLOW
--- NOTE | 2019-06-26 17:43 | RADIOLOGY REPORT (SQ) ---
EXAM DESCRIPTION: CT ABD/PELVIS WITH IV ONLY COMPLETED DATE/TIME: 06/26/2019 5:20 pm REASON FOR STUDY: LLQ abdominal pain COMPARISON: None. TECHNIQUE: CT scan of the abdomen and pelvis performed using helical scanning technique with dynamic intravenous contrast injection. No oral contrast. Images reviewed with lung, soft tissue, and bone windows. Reconstructed coronal and sagittal MPR images reviewed. Delayed images for evaluation of the urinary system also acquired. All images stored on PACS. All CT scanners at this facility use dose modulation, iterative reconstruction, and/or weight based d osing when appropriate to reduce radiation dose to as low as reasonably achievable (ALARA). [facility]: Dose Right [facility]: CareDose [facility]: Dose Right [facility]: Teradose 4D [facility]: [place] Direct CONTRAST TYPE AND DOSE: contrast/concentration: Isovue 350.00 mg/ml; Total Contrast Delivered: 100.0 ml; Total Saline Delivered: 72.0 ml RENAL FUNCTION: Creatinine 1.0 RADIATION DOSE: CT Rad equipment meets quality standard of care and radiation dose reduction techniq ues were employed. CTDIvol: 17.6 - 19.6 mGy. DLP: 2025 mGy-cm.. LIMITATIONS: None. FINDINGS: LOWER CHEST: No significant findings. No nodules or infiltrates. LIVER: Generalized fatty infiltration. No focal masses. SPLEEN: Normal size. No focal lesions. PANCREAS: No masses. No significant calcifications. No adjacent inflammation or peripancreatic fluid collections. Pancreatic duct not dilated. GALLBLADDER: No identified stones by CT criteria. No inflammatory changes to suggest cholecystitis. ADRENAL GLANDS: No significant masses or asymmetry. RIGHT KIDNEY AND URETER: No solid masses. Generalize nephrolithiasis. 9.7 mm calculus in the pelvic ureter. Proximal to the UV junction. Mild proximal hydronephrosis and hydroureter. LEFT KIDNEY AND URETER: No solid masses. Generalize nephrolithiasis. 1 cm calculus in the proximal left ureter proximal hydronephrosis. AORTA AND VESSELS: No aneurysm. No dissection. Renal arteries, SMA, celiac without stenosis. RETROPERITONEUM: No retroperitoneal adenopathy, hemorrhage or masses. BOWEL AND PERITONEAL CAVITY: No masses or inflammatory changes. No free fluid or peritoneal masses. Sigmoid diverticulosis. APPENDIX: No appendicitis. PELVIS: No mass. No free fluid. Normal bladder. ABDOMINAL WALL: No masses. No hernias. BONES: Surgical changes in the spine. OTHER: No other significant finding. IMPRESSION: 9.7 mm calculus in the pelvic ureter on the right with moderate obstruction proximal. 1 cm calculus in the proximal left ureter with moderate obstruction. Bilateral generalize nephrolithiasis. TECHNICAL DOCUMENTATION: JOB ID: [id number] Quality ID # [id number]: Final reports with documentation of one or more dose reduction techniques (e.g., Au tomated exposure control, adjustment of the mA and/or kV according to patient size, use of iterative reconstruction technique) 2010 [employer]- All Rights Reserved Reading location - IP/workstation name: [email or web address]
[2019-06-26 18:46] VITALS: BP 136/87
== END 2019-06-26 19:45 | disposition home or self-care (01) ==
LOC: ER 13:45
DX: N13.2 Hydronephrosis with renal and ureteral calculous obstruction (principal); R10.32 Left lower quadrant pain; I25.10 Atherosclerotic heart disease of native coronary artery without angina pectoris; E11.9 Type 2 diabetes mellitus without complications; E78.00 Pure hypercholesterolemia, unspecified; Z88.3 Allergy status to other anti-infective agents; Z88.6 Allergy status to analgesic agent; I25.2 Old myocardial infarction; Z87.442 Personal history of urinary calculi
CPT/HCPCS: 36415; 74177; 80053; 81001; 82550; 83690; 85025; 87086

== ENCOUNTER 2019-07-06 18:46 | Emergency (ER) | payer MEDICARE ==
[2019-07-06] MEDS ORDERED: NORMAL SALINE 1000 ML 1,000 ML IV ONE ×2 (19:36→22:21)
--- NOTE | 2019-07-06 19:38 | ER Document Report ---
ED Medical Screen (RME) - General Chief Complaint: High Blood Pressure Stated Complaint: BLOOD PRESSURE CONERNS Time Seen by Provider: 07/06/19 19:36 Primary Care Provider: JESUS ROYAL PA-C [Primary Care Provider] - Follow up as needed Information source: Patient Notes: Patient presents complaining of fatigue feeling off balance and having an elevated blood sugar 371. Patient states that this is as high as his blood sugars ever been. Patient was recently seen and had ureteral stents placed for kidney stones. I have greeted and performed a rapid initial assessment of this patient. A comprehensive ED assessment and evaluation of the patient, analysis of test results and completion of the medical decision making process will be conducted by additional ED providers. TRAVEL OUTSIDE OF THE [place] IN LAST 30 DAYS: No - Related Data Allergies/Adverse Reactions: fentanyl Allergy (Verified 06/26/19 16:41) levofloxacin [From Levaquin] Allergy (Verified 11/06/16 21:01) ibuprofen Adverse Reaction (Intermediate, Verified 11/06/16 21:01) meperidine HCl [From Demerol] Adverse Reaction (Intermediate, Verified 11/06/16 21:01) Hyperactivity Past Medical History - Past Medical History Cardiac Medical History: Reports: Hx Congestive Heart Failure - Possible, Hx Coronary Artery Disease, Hx Heart Attack, Hx Hypercholesterolemia, Hx Hypertension Denies: Hx DVT, Hx Pulmonary Embolism Pulmonary Medical History: Denies: Hx Asthma, Hx COPD Neurological Medical History: Reports: 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. Denies: Hx Cerebrovascular Accident Endocrine Medical History: Reports: Hx Diabetes Mellitus Type 2. Denies: Hx Diabetes Mellitus Type 1, Hx Hyperthyroidism, Hx Hypothyroidism Renal/ Medical History: Reports: Hx Kidney Stones GI Medical History: Reports: Hx Colonoscopy, Hx Endoscopy. Denies: Hx Cirrhosis, Hx Hepatitis, Hx Hiatal Hernia, Hx Ulcer Musculoskeltal Medical History: Reports Hx Arthritis Skin Medical History: Denies Hx Eczema, Denies Hx Psoriasis Traumatic Medical History: Reports: Hx Fractures - 5th finger accidental amputation Infectious Medical History: Denies: Hx Hepatitis Past Surgical History: Reports: Hx Adenoidectomy, Hx Cardiac Catheterization, Hx Coronary Stent, Hx Orthopedic Surgery - 4 back surgeries, repair of traumatic amputation left fifth finger, Hx Tonsillectomy. Denies: Hx Open Heart Surgery, Hx Pacemaker - Immunizations Hx Diphtheria, Pertussis, Tetanus Vaccination: Yes - 2014 Physical Exam - Vital signs Vitals: Temp Pulse Resp BP Pulse Ox 97.9 F 88 18 116/84 97 07/06/19 18:50 07/06/19 18:50 07/06/19 18:50 07/06/19 18:50 07/06/19 18:50 - General General appearance: Alert - Cardiovascular Rhythm: Regular Heart sounds: S1 appreciated, S2 appreciated Course - Vital Signs Vital signs: Temp Pulse Resp BP Pulse Ox 97.9 F 88 18 116/84 97 07/06/19 18:50 07/06/19 18:50 07/06/19 18:50 07/06/19 18:50 07/06/19 18:50 Doctor's Discharge - Discharge Referrals: JESUS ROYAL PA-C [Primary Care Provider] - Follow up as needed
[2019-07-06 20:19] LABS: ABSOLUTE LYMPHOCYTES (AUTO) 1.2 10^3/uL (0.5-4.7); ABSOLUTE MONOCYTES (AUTO) 0.6 10^3/uL (0.1-1.4); ABSOLUTE NEUT (AUTO) 11.7 10^3/uL (1.7-8.2); BASOPHILS % (AUTO) 0.1 % (0-2); HEMATOCRIT 49.4 % (37.9-51.0); HEMOGLOBIN 16.4 g/dL (13.5-17.0); LYMPHOCYTES % (AUTO) 8.9 % (13-45); MEAN CORPUSCULAR HEMOGLOBIN 31.4 pg (27.0-33.4); MEAN CORPUSCULAR HGB CONC 33.2 g/dL (32.0-36.0); MEAN CORPUSCULAR VOLUME 95 fl (80-97); MONOCYTES % (AUTO) 4.5 % (3-13); PLATELET COUNT 391 10^3/uL (150-450); RED BLOOD COUNT 5.22 10^6/uL (4.35-5.55); RED CELL DISTRIBUTION WIDTH 13.6 % (11.5-14.0); SEGMENTED NEUTROPHILS % (AUTO) 86.5 % (42-78); TOTAL CELLS COUNTED % (AUTO) 100 %; VENOUS BLOOD BASE EXCESS 4.3 mmol/L; VENOUS BLOOD HCO3 31.6 mmol/L (20-32); VENOUS BLOOD PCO2 57.1 mmHg (35-63); VENOUS BLOOD PH 7.36 (7.30-7.42); WHITE BLOOD COUNT 13.6 10^3/uL (4.0-10.5)
[2019-07-06 20:31] LABS: APPEARANCE,URINE SLIGHTLY-CLOUDY; BILIRUBIN,URINE NEGATIVE (NEGATIVE); COLOR,URINE AMBER; GLUCOSE, URINE >=500 mg/dL (NEGATIVE); KETONES,URINE NEGATIVE (NEGATIVE); LEUKOCYTE ESTERASE,URINE MODERATE (NEGATIVE); NITRITE,URINE POSITIVE (NEGATIVE); PROTEIN,URINE 100 mg/dL (NEGATIVE); URINE SPECIFIC GRAVITY 1.023
[2019-07-06 20:40] LABS: ALBUMIN 4.6 g/dL (3.5-5.0); ALKALINE PHOSPHATASE 70 U/L (38-126); ANION GAP 12 (5-19); ASPARTATE AMINO TRANSFERASE 24 U/L (17-59); BILIRUBIN,DIRECT 0.1 mg/dL (0.0-0.4); BILIRUBIN,TOTAL 1.1 mg/dL (0.2-1.3); BLOOD UREA NITROGEN 32 mg/dL (7-20); CALCIUM 9.7 mg/dL (8.4-10.2); CARBON DIOXIDE 28 mmol/L (22-30); CHLORIDE 91 mmol/L (98-107); POTASSIUM 5.5 mmol/L (3.6-5.0); TOTAL PROTEIN 7.9 g/dL (6.3-8.2)
[2019-07-06 21:00] LABS: GLUCOSE 423 mg/dL (75-110)
[2019-07-06] MEDS ORDERED: INSULIN REG, HUMAN 100 UNIT/ML 3 ML VIAL (PYX) SUBCUT ONE (22:21)
--- NOTE | 2019-07-06 22:22 | ER Document Report ---
ED General - General Chief Complaint: High Blood Sugar Stated Complaint: BLOOD PRESSURE CONERNS Time Seen by Provider: 07/06/19 19:36 Primary Care Provider: JESUS ROYAL PA-C [NO LOCAL MD] - Follow up as needed Notes: Patient is a 68-year-old male that comes emergency department with chief complaint of elevated blood sugars, he states he has felt very tired and slightly unsteady on his feet but he denies dizziness, chest pain, shortness of breath, fever, nausea, vomiting, abdominal pain. He states he was placed on prednisone for costochondritis after a cough that he has recovered from. He has a history of very mild type 2 diabetes and he is on metformin 500 mg once a day. He also has current ureteral stents on both sides from Dr. [facility] in [facility]. He states he is supposed to be seen on Monday and have the stents removed early this week. He states he did not have any obstructive ureterolit hiasis, only nephrolithiasis with laser treatment but they were trying to pass them with. When asked he also states that he took Azo earlier today. He is not currently on any antibiotics. TRAVEL OUTSIDE OF THE [place] IN LAST 30 DAYS: No - Related Data Allergies/Adverse Reactions: fentanyl Allergy (Verified 06/26/19 16:41) levofloxacin [From Levaquin] Allergy (Verified 11/06/16 21:01) ibuprofen Adverse Reaction (Intermediate, Verified 11/06/16 21:01) meperidine HCl [From Demerol] Adverse Reaction (Intermediate, Verified 11/06/16 21:01) Hyperactivity Past Medical History - General Information source: Patient - Social History Smoking Status: Former Smoker Chew tobacco use (# tins/day): No Frequency of alcohol use: None Drug Abuse: None Lives with: Family Family History: Reviewed & Not Pertinent, CAD, CVA, Other - DVT Patient has suicidal ideation: No Patient has homicidal ideation: No - Past Medical History Cardiac Medical History: Reports: Hx Congestive Heart Failure - Possible, Hx Coronary Artery Disease, Hx Heart Attack, Hx Hypercholesterolemia, Hx Hypertension Denies: Hx DVT, Hx Pulmonary Embolism Pulmonary Medical History: Denies: Hx Asthma, Hx COPD Neurological Medical History: Reports: 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. Denies: Hx Cerebrovascular Accident Endocrine Medical History: Reports: Hx Diabetes Mellitus Type 2. Denies: Hx Diabetes Mellitus Type 1, Hx Hyperthyroidism, Hx Hypothyroidism Renal/ Medical History: Reports: Hx Kidney Stones GI Medical History: Reports: Hx Colonoscopy, Hx Endoscopy. Denies: Hx Cirrhosis, Hx Hepatitis, Hx Hiatal Hernia, Hx Ulcer Musculoskeletal Medical History: Reports Hx Arthritis Skin Medical History: Denies Hx Eczema, Denies Hx Psoriasis Traumatic Medical History: Reports: Hx Fractures - 5th finger accidental amputation Infectious Medical History: Denies: Hx Hepatitis Past Surgical History: Reports: Hx Adenoidectomy, Hx Cardiac Catheterization, Hx Coronary Stent, Hx Orthopedic Surgery - 4 back surgeries, repair of traumatic amputation left fifth finger, Hx Tonsillectomy. Denies: Hx Open Heart Surgery, Hx Pacemaker - Immunizations Hx Diphtheria, Pertussis, Tetanus Vaccination: Yes - 2014 Hx Pneumococcal Vaccination: 08/13/14 Review of Systems - Review of Systems Constitutional: See HPI EENT: No symptoms reported Cardiovascular: No symptoms reported Respiratory: No symptoms reported Gastrointestinal: See HPI Genitourinary: See HPI Male Genitourinary: No symptoms reported Musculoskeletal: No symptoms reported Skin: No symptoms reported Hematologic/Lymphatic: No symptoms reported Neurological/Psychological: No symptoms reported Physical Exam - Vital signs Vitals: Temp Pulse Resp BP Pulse Ox 97.9 F 88 18 116/84 97 07/06/19 18:50 07/06/19 18:50 07/06/19 18:50 07/06/19 18:50 07/06/19 18:50 - Notes Notes: GENERAL: Alert, interacts well. No acute distress. Smiling, talkative, well- appearing. HEAD: Normocephalic, atraumatic. EYES: Pupils equal, round, and reactive to light. Extraocular movements intact. ENT: Oral mucosa moist, tongue midline. Oropharynx unremarkable. Airway patent. Nares patent, no nasal septal hematoma NECK: Full range of motion. Supple. Trachea midline. LUNGS: Clear to auscultation bilaterally, no wheezes, rales, or rhonchi. No respiratory distress. HEART: Regular rate and rhythm. No murmur ABDOMEN: Soft, non-tender. Non-distended. Bowel sounds present in all 4 quadrants. GENITOURINARY: Deferred EXTREMITIES: Moves all 4 extremities spontaneously. No edema, normal radial and dorsalis pedis pulses bilaterally. No cyanosis. BACK: no cervical, thoracic, lumbar midline tenderness. No saddle anesthesia, normal distal neurovascular exam. NEUROLOGICAL: Alert and oriented x3. Normal speech. Cranial nerves II through XII grossly intact. PSYCH: Normal affect, normal mood. SKIN: Warm, dry, normal turgor. No rashes or lesions noted. Course - Re-evaluation Re-evalutation: Patient is smiling, talkative, well-appearing. Soft benign abdomen, no CVA tenderness. CBC shows mild leukocytosis but this is expected with steroids. CBC shows hyperglycemia in the 400s but anion gap and bicarbonate are both normal. There are no ketones in the urine. Potassium borderline at 5.5. Patient was given 2 boluses of IV fluids for this. He was also given insulin. His urine does show some white blood cells, red blood cells, and positive nitrates. However patient also has been taking Azo so this could be a false positive. I discussed all results with patient. Patient states he would prefer to be discharged to follow-up with his urologist after treatment of his hyperglycemia. Glucose is downtrending nicely, he has been started on antibiotics. I did discuss with Dr. Ruelas, he does recommend that patient can be discharged on antibiotics with instructions to stop the steroids, and strict return precautions. Patient does have excellent close follow-up. Urine culture pending. Patient remains asymptomatic and well-appearing at time of discharge. Discharged with return precautions. Patient states satisfaction and agreement. - Vital Signs Vital signs: Temp Pulse Resp BP Pulse Ox 97.6 F 72 17 124/83 96 07/06/19 23:37 07/06/19 23:37 07/06/19 23:37 07/06/19 23:37 07/06/19 23:37 - Laboratory Result Diagrams: 07/06/19 19:50 07/06/19 19:50 Laboratory results interpreted by me: 07/06/19 07/06/19 07/06/19 19:50 19:50 19:52 WBC 13.6 H Lymph % (Auto) 8.9 L Absolute Neuts (auto) 11.7 H Seg Neutrophils % 86.5 H Sodium 131.3 L Potassium 5.5 H Chloride 91 L BUN 32 H Est GFR (MDRD) Non-Af 57 L Glucose 423 H* POC Glucose 362 H Urine Protein Urine Glucose (UA) Urine Blood Urine Nitrite Urine Urobilinogen Ur Leukocyte Esterase 07/06/19 07/06/19 07/06/19 20:03 21:03 23:15 WBC Lymph % (Auto) Absolute Neuts (auto) Seg Neutrophils % Sodium Potassium Chloride BUN Est GFR (MDRD) Non-Af Glucose POC Glucose 324 H 246 H Urine Protein 100 H Urine Glucose (UA) >=500 H Urine Blood LARGE H Urine Nitrite POSITIVE H Urine Urobilinogen 4.0 H Ur Leukocyte Esterase MODERATE H Discharge - Discharge Clinical Impression: Hyperglycemia, Weakness Condition: Stable Disposition: HOME, SELF-CARE Additional Instructions: Your work-up shows dehydration, elevated glucose. You have been treated for thi s, stop the prednisone, continue metformin, stay hydrated, follow-up close with your provider for recheck of your blood chemistry. Your urine is borderline, we do have a culture placed, we have placed you on antibiotic prophylaxis for this because of the positive nitrates, however it is most likely that the positive nitrates are because you have been taking Azo. Follow close with your urologist for additional management, return to emerge department for any concerning symptoms including developing pain, vomiting, fever/chills, or any other concerning symptoms. Prescriptions: Cephalexin Monohydrate [Keflex 500 mg Capsule] 500 mg PO BID 7 Days #14 capsule Referrals: JESUS ROYAL PA-C [NO LOCAL MD] - Follow up as needed
[2019-07-06] MEDS ORDERED: CEPHALEXIN 500 MG CAPSULE PO ONE (23:30)
[2019-07-06 23:44] VITALS: BP 124/83
--- NOTE | 2019-07-08 00:55 | EKG REPORT ---
SEVERITY:- ABNORMAL ECG - SINUS RHYTHM LEFT ANTERIOR FASCICULAR BLOCK PROBABLE ANTEROSEPTAL INFARCT, AGE INDETERM : Confirmed by: Ashley Mayo 08-Jul-2019 00:53:57
== END 2019-07-06 23:45 | disposition home or self-care (01) ==
LOC: ER 18:46
DX: E11.65 Type 2 diabetes mellitus with hyperglycemia (principal); Z79.84 Long term (current) use of oral hypoglycemic drugs; M94.0 Chondrocostal junction syndrome [Tietze]; R53.1 Weakness; R26.81 Unsteadiness on feet; R53.83 Other fatigue; D72.829 Elevated white blood cell count, unspecified; R31.9 Hematuria, unspecified; I25.10 Atherosclerotic heart disease of native coronary artery without angina pectoris; I10 Essential (primary) hypertension; Z96.0 Presence of urogenital implants; Z88.5 Allergy status to narcotic agent; Z88.1 Allergy status to other antibiotic agents; Z87.891 Personal history of nicotine dependence
CPT/HCPCS: 93005; 99283; 96360; 96361; 36415; 87086; 82962; 85025; 87088; 80053; 81001; 82803; 93010; A9270 ×2; J7030; 87186; J1815

== ENCOUNTER 2019-10-10 20:34 | Emergency (ER) | payer MEDICARE ==
[2019-10-10] MEDS ORDERED: ACETAMINOPHEN 325 MG TABLET PO ONE (21:42)
--- NOTE | 2019-10-10 21:44 | ER Document Report ---
ED Medical Screen (RME) - General Chief Complaint: High Blood Pressure Stated Complaint: HIGH BLOOD SUGAR Time Seen by Provider: 10/10/19 21:38 Primary Care Provider: BRIDGET SYED PA-C [Primary Care Provider] - Follow up as needed Information source: Patient Notes: Patient presents complaining of elevated blood sugar reading at home of over 300. Patient complains of fatigue headache and some lower abdominal tenderness. Patient states abdominal tenderness started yesterday and he had pain similar to this when he had kidney stones in the past. Patient reports a history of diabetes, kidney stones and [place]. I have greeted and performed a rapid initial assessment of this patient. A comprehensive ED assessment and evaluation of the patient, analysis of test results and completion of the medical decision making process will be conducted by additional ED providers. TRAVEL OUTSIDE OF THE [place] IN LAST 30 DAYS: No - Related Data Allergies/Adverse Reactions: fentanyl Allergy (Verified 10/10/19 21:38) levofloxacin [From Levaquin] Allergy (Verified 10/10/19 21:38) ibuprofen Adverse Reaction (Intermediate, Verified 10/10/19 21:38) meperidine HCl [From Demerol] Adverse Reaction (Intermediate, Verified 10/10/19 21:38) Hyperactivity Past Medical History - Past Medical History Cardiac Medical History: Reports: Hx Congestive Heart Failure - Possible, Hx Coronary Artery Disease, Hx Heart Attack, Hx Hypercholesterolemia, Hx Hypertension Denies: Hx DVT, Hx Pulmonary Embolism Pulmonary Medical History: Denies: Hx Asthma, Hx COPD Neurological Medical History: Reports: 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. Denies: Hx Cerebrovascular Accident Endocrine Medical History: Reports: Hx Diabetes Mellitus Type 2. Denies: Hx Diabetes Mellitus Type 1, Hx Hyperthyroidism, Hx Hypothyroidism Renal/ Medical History: Reports: Hx Kidney Stones GI Medical History: Reports: Hx Colonoscopy, Hx Endoscopy. Denies: Hx Cirrhosis, Hx Hepatitis, Hx Hiatal Hernia, Hx Ulcer Musculoskeltal Medical History: Reports Hx Arthritis Skin Medical History: Denies Hx Eczema, Denies Hx Psoriasis Traumatic Medical History: Reports: Hx Fractures - 5th finger accidental amputation Infectious Medical History: Denies: Hx Hepatitis Past Surgical History: Reports: Hx Adenoidectomy, Hx Cardiac Catheterization, Hx Coronary Stent, Hx Orthopedic Surgery - 4 back surgeries, repair of traumatic amputation left fifth finger, Hx Tonsillectomy. Denies: Hx Open Heart Surgery, Hx Pacemaker - Immunizations Hx Diphtheria, Pertussis, Tetanus Vaccination: Yes - 2014 Physical Exam - Vital signs Vitals: Temp Pulse Resp BP Pulse Ox 98.1 F 86 18 147/86 H 95 10/10/19 20:38 10/10/19 20:38 10/10/19 20:38 10/10/19 20:38 10/10/19 20:38 - Cardiovascular Rhythm: Regular Heart sounds: S1 appreciated, S2 appreciated - Abdominal Tenderness: Tender - Lower abdominal tenderness Course - Vital Signs Vital signs: Temp Pulse Resp BP Pulse Ox 98.1 F 86 18 147/86 H 95 10/10/19 20:38 10/10/19 20:38 10/10/19 20:38 10/10/19 20:38 10/10/19 20:38 Doctor's Discharge - Discharge Referrals: BRIDGET SYED PA-C [Primary Care Provider] - Follow up as needed
[2019-10-10 22:22] LABS: VENOUS BLOOD BASE EXCESS 2.3 mmol/L; VENOUS BLOOD HCO3 30.8 mmol/L (20-32); VENOUS BLOOD PCO2 63.8 mmHg (35-63); VENOUS BLOOD PH 7.3 (7.30-7.42)
[2019-10-10 22:32] LABS: ABSOLUTE BASOPHILS # (AUTO) 0.1 10^3/uL (0.0-0.2); ABSOLUTE EOSINOPHILS # (AUTO) 0.2 10^3/uL (0.0-0.6); ABSOLUTE LYMPHOCYTES (AUTO) 2.1 10^3/uL (0.5-4.7); ABSOLUTE MONOCYTES (AUTO) 0.6 10^3/uL (0.1-1.4); ABSOLUTE NEUT (AUTO) 6.2 10^3/uL (1.7-8.2); BASOPHILS % (AUTO) 0.7 % (0-2); EOSINOPHILS % (AUTO) 1.7 % (0-6); HEMATOCRIT 48.3 % (37.9-51.0); HEMOGLOBIN 16.7 g/dL (13.5-17.0); LYMPHOCYTES % (AUTO) 22.9 % (13-45); MEAN CORPUSCULAR HEMOGLOBIN 33.6 pg (27.0-33.4); MEAN CORPUSCULAR HGB CONC 34.5 g/dL (32.0-36.0); MEAN CORPUSCULAR VOLUME 97 fl (80-97); PLATELET COUNT 359 10^3/uL (150-450); RED BLOOD COUNT 4.96 10^6/uL (4.35-5.55); RED CELL DISTRIBUTION WIDTH 12.7 % (11.5-14.0); SEGMENTED NEUTROPHILS % (AUTO) 67.7 % (42-78); TOTAL CELLS COUNTED % (AUTO) 100 %; WHITE BLOOD COUNT 9.1 10^3/uL (4.0-10.5)
[2019-10-10 22:34] LABS: APPEARANCE,URINE SLIGHTLY-CLOUDY; BILIRUBIN,URINE NEGATIVE (NEGATIVE); COLOR,URINE YELLOW; GLUCOSE, URINE >=500 mg/dL (NEGATIVE); KETONES,URINE TRACE mg/dL (NEGATIVE); LEUKOCYTE ESTERASE,URINE TRACE (NEGATIVE); NITRITE,URINE NEGATIVE (NEGATIVE); PROTEIN,URINE NEGATIVE (NEGATIVE); URINE SPECIFIC GRAVITY 1.024; UROBILINOGEN,URINE NEGATIVE mg/dL (<2.0)
[2019-10-10 22:41] LABS: ALBUMIN 4.6 g/dL (3.5-5.0); ALKALINE PHOSPHATASE 70 U/L (38-126); ANION GAP 11 (5-19); ASPARTATE AMINO TRANSFERASE 34 U/L (17-59); BILIRUBIN,DIRECT 0.3 mg/dL (0.0-0.4); BILIRUBIN,TOTAL 0.6 mg/dL (0.2-1.3); BLOOD UREA NITROGEN 16 mg/dL (7-20); CALCIUM 9.6 mg/dL (8.4-10.2); CARBON DIOXIDE 31 mmol/L (22-30); CHLORIDE 96 mmol/L (98-107); GLUCOSE 310 mg/dL (75-110); POTASSIUM 4.6 mmol/L (3.6-5.0); TOTAL PROTEIN 7.8 g/dL (6.3-8.2)
--- NOTE | 2019-10-11 02:39 | ER Document Report ---
ED General - General Chief Complaint: High Blood Pressure Stated Complaint: HIGH BLOOD SUGAR Time Seen by Provider: 10/10/19 21:38 Primary Care Provider: BRIDGET SYED PA-C [Primary Care Provider] - Follow up as needed TRAVEL OUTSIDE OF THE [place] IN LAST 30 DAYS: No - HPI Notes: Mr. Johnson is a 69-year-old male with a history of diabetes mellitus type 2, hypertension and previous [place] as well as renal stones. He has been off his diet and consuming some sweet desserts over the holidays. He measured a blood sugar over 300 at home and call nurse line and they told him to come the emergency department. He is relatively asymptomatic with this. He is currently taking metformin 500 mg twice daily. Patient specifically denies chest pain, shortness of breath syncope or presy ncope. He denies palpitations. - Related Data Allergies/Adverse Reactions: fentanyl Allergy (Verified 10/10/19 21:38) levofloxacin [From Levaquin] Allergy (Verified 10/10/19 21:38) ibuprofen Adverse Reaction (Intermediate, Verified 10/10/19 21:38) meperidine HCl [From Demerol] Adverse Reaction (Intermediate, Verified 10/10/19 21:38) Hyperactivity Past Medical History - General Information source: Patient, Relative - Social History Smoking Status: Former Smoker Family History: Reviewed & Not Pertinent, CAD, CVA, Other - DVT Patient has suicidal ideation: No Patient has homicidal ideation: No - Past Medical History Cardiac Medical History: Reports: Hx Congestive Heart Failure - Possible, Hx Coronary Artery Disease, Hx Heart Attack, Hx Hypercholesterolemia, Hx Hypertension Denies: Hx DVT, Hx Pulmonary Embolism Pulmonary Medical History: Denies: Hx Asthma, Hx COPD Neurological Medical History: Reports: 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. Denies: Hx Cerebrovascular Accident Endocrine Medical History: Reports: Hx Diabetes Mellitus Type 2. Denies: Hx Diabetes Mellitus Type 1, Hx Hyperthyroidism, Hx Hypothyroidism Renal/ Medical History: Reports: Hx Kidney Stones GI Medical History: Reports: Hx Colonoscopy, Hx Endoscopy. Denies: Hx Cirrhosis, Hx Hepatitis, Hx Hiatal Hernia, Hx Ulcer Musculoskeletal Medical History: Reports Hx Arthritis Skin Medical History: Denies Hx Eczema, Denies Hx Psoriasis Traumatic Medical History: Reports: Hx Fractures - 5th finger accidental amputation Infectious Medical History: Denies: Hx Hepatitis Past Surgical History: Reports: Hx Adenoidectomy, Hx Cardiac Catheterization, Hx Coronary Stent, Hx Orthopedic Surgery - 4 back surgeries, repair of traumatic amputation left fifth finger, Hx Tonsillectomy. Denies: Hx Open Heart Surgery, Hx Pacemaker - Immunizations Hx Diphtheria, Pertussis, Tetanus Vaccination: Yes - 2014 Hx Pneumococcal Vaccination: 08/13/14 Review of Systems - Review of Systems Notes: Constitutional: Negative for fever. HENT: Negative for sore throat. Eyes: Negative for visual changes. Cardiovascular: Negative for chest pain. Respiratory: Negative for shortness of breath. Gastrointestinal: Negative for abdominal pain, vomiting or diarrhea. Genitourinary: Negative for dysuria. Musculoskeletal: Negative for back pain. Skin: Negative for rash. Neurological: Negative for headaches, weakness or numbness. 10 point ROS negative except as marked above and in HPI. Physical Exam - Vital signs Vitals: Temp Pulse Resp BP Pulse Ox 98.1 F 86 18 147/86 H 95 10/10/19 20:38 10/10/19 20:38 10/10/19 20:38 10/10/19 20:38 10/10/19 20:38 - Notes Notes: GENERAL: Well-developed well-nourished appearing in no acute distress. SKIN: Good turgor no rashes. HEAD: Normocephalic atraumatic. EYES: PERRLA. EOMI. Conjunctivae and sclerae clear. EARS: CANALS AND TMS CLEAR. NOSE: CLEAR. MOUTH: Moist mucosa. Good dentition. No stridor or edema. No drooling. NECK: Supple. No masses or thyromegaly. No adenopathy. Carotids 2+ without bruits. No JVD. BACK: Symmetrical without tenderness. CHEST: Respirations unlabored. Breath sounds clear and symmetrical. HEART: Regular rhythm. No murmur gallop or rub. ABDOMEN: Soft nontender without masses, organomegaly or rebound. Bowel sounds normally active. No bruits. GENITALIA: Deferred. EXTREMITIES: No edema. No calf tenderness. Cap refill less than 1.5 seconds. Dorsalis pedis and posterior tibial pulses 3+ and symmetrical. NEUROLOGICAL: GCS 15. Alert and oriented x3. Normal gait. Fluent speech. Cranial nerves II through XII intact. Sensorimotor and cerebellar normal. Nor mal tone. PSYCHIATRIC: Appropriate affect. Course - Re-evaluation Re-evalutation: 10/11/19 02:37 Patient was given IV fluids here for lowering of his blood sugar. I talked with him about improved dietary compliance. He is going to increase his metformin 2000 mg morning 500 mg at night. Follow-up primary care doctor this week. He can return here as needed. - Vital Signs Vital signs: Temp Pulse Resp BP Pulse Ox 98.2 F 88 20 130/86 H 97 10/11/19 01:25 10/11/19 01:25 10/11/19 01:25 10/11/19 01:25 10/11/19 01:25 - Laboratory Result Diagrams: 10/10/19 21:50 10/10/19 21:50 Laboratory results interpreted by me: 10/10/19 10/10/19 10/10/19 21:50 21:50 21:50 MCH 33.6 H VBG pCO2 Chloride 96 L Carbon Dioxide 31 H Est GFR (MDRD) Non-Af 58 L Glucose 310 H Urine Glucose (UA) >=500 H Urine Ketones TRACE H Ur Leukocyte Esterase TRACE H 10/10/19 21:50 MCH VBG pCO2 63.8 H Chloride Carbon Dioxide Est GFR (MDRD) Non-Af Glucose Urine Glucose (UA) Urine Ketones Ur Leukocyte Esterase Discharge - Discharge Clinical Impression: Diabetes mellitus type 2 poorly controll Condition: Stable Disposition: HOME, SELF-CARE Additional Instructions: New dosing for Metformin 500 m tablets each morning and 1 tablet each evening. Avoid sweets and refined sugar. Reduce intake of bread, potatoes, rice and pasta. Follow-up with your primary care physician within the next 7 days. Return here as needed for new or worsening symptoms: Pain that is worsening or unimproved Uncontrolled vomiting High fever or shaking chills Overall worsening Referrals: BRIDGET SYED PA-C [Primary Care Provider] - Follow up as needed
[2019-10-11 03:07] VITALS: BP 126/94
== END 2019-10-11 03:10 | disposition home or self-care (01) ==
LOC: ER 20:34
DX: E11.65 Type 2 diabetes mellitus with hyperglycemia (principal); Z79.84 Long term (current) use of oral hypoglycemic drugs; Z91.11 Patient's noncompliance with dietary regimen; I25.10 Atherosclerotic heart disease of native coronary artery without angina pectoris; I10 Essential (primary) hypertension; Z87.891 Personal history of nicotine dependence; Z88.6 Allergy status to analgesic agent; Z88.5 Allergy status to narcotic agent; Z88.1 Allergy status to other antibiotic agents
CPT/HCPCS: 36415; 80053; 81001; 82803; 85025; 99284

== ENCOUNTER → 2019-12-23 | Outpatient (CLI) | payer MEDICARE ==
--- NOTE | 2019-12-23 09:52 | RADIOLOGY REPORT (SQ) ---
EXAM DESCRIPTION: U/S ABD AORTIC SCREENING COMPLETED DATE/TIME: 12/23/2019 9:39 am REASON FOR STUDY: (Z13.6)ENCOUNTER FOR SCREENING FOR CARDIOVASCULAR DISORDERS Z13.6 ENCOUNTER FOR S CREENING FOR CARDIOVASCULAR DISORDERS COMPARISON: None. TECHNIQUE: Static and dynamic grayscale images acquired of the aorta and stored on PACs. Selected co irene Doppler and spectral images recorded. LIMITATIONS: Overlying bowel gas. FINDINGS: AORTIC CALIBER MAXIMAL PROXIMAL: 2.1 x 1.9 cm. MID: 2.3 x 2.2 cm. DISTAL: 2.4 x 2.6 cm. ILIAC DIAMETER RIGHT: 2.2 cm. LEFT: 2.5 cm. OTHER: No other significant finding. IMPRESSION: NO ABDOMINAL AORTIC ANEURYSM. COMMENT: Aortic aneurysm imaging followup: 2.6-2.9 cm Every 5 years* *Based upon the Society for Vascular Surgery Guidelines: J Vasc Surg. 2009 Oct;50(4 Suppl):S2-49 *For aortas of maximum diameter of 2.6-2.9 cm meeting the criteria for AAA (?1.5 x proximal normal se gment) TECHNICAL DOCUMENTATION: JOB ID: [id number] [employer]- All Rights Reserved Reading location - IP/workstation name: [email or web address]
== END ==
LOC: RAD 08:50
PROVIDERS: ATTEND Internal Medicine Cardiovascular Disease
DX: Z13.6 Encounter for screening for cardiovascular disorders (principal); Z87.891 Personal history of nicotine dependence
CPT/HCPCS: 76706